=== PATIENT | female | born 1955 | race Caucasian/White ===

== ENCOUNTER → 2017-03-13 | Outpatient (CLI) | payer BC ==
[~2017-03-13] MED LIST: ASPCH81 PO
== END | disposition home or self-care (01) ==
LOC: C.PAPS 09:23
PROVIDERS: ATTEND Obstetrics & Gynecology
DX: Z01.419 Encounter for gynecological examination (general) (routine) without abnormal findings (principal)

== ENCOUNTER → 2017-07-30 | Outpatient (CLI) | payer BC ==
--- NOTE | 2017-07-31 07:57 | MAMMOGRAPHY REPORT ---
BILATERAL DIGITAL SCREENING MAMMOGRAM TOMOSYNTHESIS WITH CAD: 07/30/2017 CLINICAL HISTORY: Routine screening examination. TECHNIQUE: Breast tomosynthesis in addition to standard 2D mammography was performed. Current study was also evaluated with a Computer Aided Detection (CAD) system. COMPARISON: Comparison is made to exams dated: 07/24/2016 mammogram, 07/20/2015 mammogram, 11/18/2013 mammogram, 05/18/2013 aspiration, 05/06/2013 mammogram, and 10/29/2012 ultrasound - [facility]. BREAST COMPOSITION: There are scattered areas of fibroglandular density in both breasts. FINDINGS: There are benign calcifications in the breasts and multiple bilateral circumscribed subcen timeter masses, which is a typically benign mammographic pattern. No suspicious spiculated or irregu lar mass, architectural distortion or cluster of microcalcifications is seen. IMPRESSION: ACR BI-RADS CATEGORY 1: NEGATIVE There is no mammographic evidence of malignancy. A 1 year screening mammogram is recommended. The pa tient will receive written notification of the results. Approximately 10% of breast cancers are not detected with mammography. A negative mammographic report should not delay biopsy if a clinically suggestive mass is present. Winter Fritz M.D. ay/:07/30/2017 16:13:36 Child Care Giver: Carissa VASQUEZ)(M), [facility] letter sent: Normal 1/2 BI-RADS Code: ACR BI-RADS Category 1: Negative
== END | disposition home or self-care (01) ==
LOC: C.MAMM 08:52
PROVIDERS: ATTEND Obstetrics & Gynecology
DX: Z12.31 Encounter for screening mammogram for malignant neoplasm of breast (principal)

== ENCOUNTER → 2017-09-05 | Outpatient (CLI) | payer BC | END | disposition home or self-care (01) | LOC: C.MAMM 08:52 | PROVIDERS: ATTEND Internal Medicine | DX: Z78.0 Asymptomatic menopausal state (principal) ==

== ENCOUNTER → 2018-05-05 | Outpatient (CLI) | payer OTHER ==
[~2018-05-05] MED LIST changes: -ASPCH81 PO; +ASPI81TA28 PO; +BIOT1TAB5 PO; +CALC500T83 PO; +MISCCAP69 PO; +OMEG10007 PO; +SIMV20TA2 PO
== END | disposition home or self-care (01) ==
LOC: C.LABSPEC 13:51
PROVIDERS: ATTEND Obstetrics & Gynecology
DX: Z01.411 Encounter for gynecological examination (general) (routine) with abnormal findings (principal); N95.2 Postmenopausal atrophic vaginitis

== ENCOUNTER 2021-03-15 14:03 | Inpatient (IN) ==
[~2021-03-15 14:03] MED LIST changes: -ASPI81TA28 PO; -BIOT1TAB5 PO; -CALC500T83 PO; +ETOMIDATE 2 MG/ML 20 ML VIAL IV ONE; -MISCCAP69 PO; -OMEG10007 PO; +ROCURONIUM BROMIDE 10 MG/ML 5 ML VIAL IV ONE; -SIMV20TA2 PO; +SODIUM BICARB 8.4% INJ 50 MEQ/50 ML SYR IV ONE; +fentaNYL citrate 100 MCG/2 ML VIAL IV ONE
[2021-03-15] MEDS ORDERED: ONDANSETRON INJ 2 MG/ML 2 ML VIAL IV STA ×2 (17:01→22:51)
[2021-03-15] MEDS ORDERED: SODIUM CHLORIDE 0.9% 1000ML 1,000 ML IV STA (17:01)
[2021-03-15] MEDS: fentaNYL citrate 100 MCG/2 ML VIAL IV PRN ×3 (17:35→22:52)
--- NOTE | 2021-03-15 17:44 | Emergency Department Note ---
Impression & Plan Thrombosis/embolism, arterial, Abdominal pain, acute, right upper quadrant, Thrombocytopenia ED Provider Note NAME: MILEY WIGGINS AGE: 65 SEX: F : 1955 ARRIVES VIA: Walk-In INFORMANT: Patient, ED PROVIDER(S): Wan Monique DO CHIEF COMPLAINT: Abdominal pain HPI: The patient is a 65-year-old female who presented to the emergency department for an evaluation of abdominal pain. The patient noted right upper quadrant abdominal pain which began a few days ago. The patient states the pain is been intermittent and waxing and waning. She did eat earlier today but is unsure if it made the pain worse. She does note significant nausea as well as right-sided back pain. She denies having any hematuria. She denies having dysuria or frequency. She did notice a fever. She denies having any cough. She has no chest pain at this time. She called her family doctor but was told to go to the emergency department for further evaluation of her pain. She denies having any recent trauma. She was tested for COVID-19 but does not know the results yet. ROS: See above HPI for pertinent positives & negatives. A total of 10 systems reviewed and were otherwise negative. PAST MEDICAL HISTORY: See Below PAST SURGICAL HISTORY: See Below FAMILY HISTORY: See Below SOCIAL HISTORY: See Below HOME MEDICATIONS: See Below ALLERGIES: See Below VITALS: See Below PHYSICAL EXAMINATION: GENERAL: The patient is awake and alert. She is somewhat anxious and uncomfortable appearing. EYES: The conjunctivae are clear. The pupils are round and reactive. EARS, NOSE, MOUTH AND THROAT: The nose is without any evidence of any deformity. NECK: The neck is nontender and supple. RESPIRATORY: Normal respiratory effort is noted there is no evidence of wheezing rhonchi or rales CARDIOVASCULAR: Regular rate and rhythm noted there no murmurs rubs or gallops normal S1 normal S2. GASTROINTESTINAL: The abdomen is soft and mildly distended. There is significant right upper quadrant tenderness to palpation. MUSCULOSKELETAL/EXTREMITIES: There is no evidence of gross deformity full range of motion is noted in the hips and shoulders. SKIN: There is no obvious evidence of any rash. There are no petechiae, pallor or cyanosis noted. NEUROLOGIC: Patient is awake alert and oriented x3 strength is symmetric uribe lar reflexes are 2+ bilaterally MEDICAL DECISION MAKING: The patient is a 65-year-old female who presented to the emergency department for an evaluation of right upper quadrant abdominal pain. The patient started having right upper quadrant abdominal pain over the course the last few days. Initially I thought her condition was consistent with cholecystitis. Radiographic studies were obtained but no definite source of the patient's pain could be found on ultrasound although there was some abnormality suggested in the vasculature. For this reason CT of the abdomen and pelvis was obtained but this appeared to be consistent with abnormalities in the celiac branches. There is also a splenic infarct. I discussed the patient's laboratory and radiog raphic studies with her. I also discussed her case with the vascular surgeon at [facility]. They do feel this is more likely to be a medical work- up. I discussed her case with the vascular surgeon in our facility as well as the [facility] hospitalist group at our facility. They have agreed to evaluate the patient for further management. The topic of heparin was discussed and at this time was felt to be indicated given the patient's signs of vascular occlusion. Triage Nursing notes reviewed. Prior medical records reviewed Vital Signs: reviewed and remarkable for elevated blood pressure. Differential diagnosis: Etiologies such as appendicitis, diverticulitis, obstruction, inflammatory bowel disease, renal colic, PUD, biliary pathology, pancreatitis, mesenteric ischemia, aortic pathology, infections, genitourinary, UTI, perforated viscus, as well as others were entertained. ER treatment provided: See below Diagnostics interpreted by me: ECG: EKG was obtained in the emergency department. My interpretation is normal sinus rhythm at 65 bpm. There is no ectopy. There was no acute ST segment abnormalities noted. Incomplete right bundle branch block pattern was noted. There was no previous tracing available. Cardiac Monitoring: An order was placed for continuous cardiac monitoring. The monitor shows a rate of 76 bpm with sinus rhythm. Laboratory studies: As stated above and show below. Imaging studies: See below Consultation(s): 2049: I discussed this case with Dr. Vasquez who is on-call for vascular surgery at [facility]. He does recommend medical management at this time and sees no contraindication to heparinization. 2099: I discussed this case with Dr. Luu who is on-call at our facility for vascular. 2119: I discussed with Dr. Schultz who is on-call for the [facility] hospitalist group. ED COURSE: Procedures: none PDMP:reviewed and no issues Critical Care: I have personally spent greater than 45 minutes of critical care time in the direct management of this patient. This includes bedside care, interpretation of diagnostic studies, and testing, discussion with consultants, patient, and family members, and other required patient management activities. This 45 minutes is in excess of all separately billable procedures. Past Med/Surg History Medical History Encounter for counseling for travel Encounter for gynecological examination (general) (routine) without abnormal findings Encounter for immunization Encounter for screening for other suspected endocrine disorder Lateral epicondylitis, unspecified elbow Migraine without aura, not intractable, without status migrainosus Need for immunization using typhoid-paratyphoid (TAB) vaccine alone Need for influenza vaccination Need for pneumococcal vaccination Need for prophylactic measure Rash and other nonspecific skin eruption Surgical History S/P colonoscopy 2006, q 5yr S/P thyroid surgery R sided d/t cyst, age 14 S/P tubal ligation Family History Father Colorectal cancer Mother Coronary heart disease Brother Aortic aneurysm Denies family history of Ovarian cancer Prostate cancer Myocardial infarction Breast cancer Social History Smoking Status: Never smoker Second Hand Exposure: No; Hx Alcohol Use: Yes Alcohol type: wine Alcohol Intake Frequency Comment: 8 times a year Hx Substance Use: No Preferred Language: Azerbaijani Visual Impairment: No Limitations marital status: Current Living Situation: Spouse current occupational status: retired Feels Safe at Home: Yes Childhood Exposure to Second-Hand Smoke: No Dental Care, Regularly: Yes Physical Activity Frequency: 1-2 Times per Week Seatbelt Use: always Sunscreen Use: Yes Allergies Allergies Allergy/AdvReac Type Severity Reaction Status Date / Time meperidine AdvReac Intermediate N/V AND Verified 03/15/21 19:45 AMNESIA midazolam AdvReac Intermediate AMNESIA Verified 03/15/21 19:45 procaine AdvReac Intermediate HEART Verified 03/15/21 19:45 PALPITATIONS Home Meds Home Medications Medication Instructions Recorded Confirmed biotin 10 mg tablet 10 mg PO DAILY 12/31/19 03/15/21 ascorbate calcium (vitamin C) 500 500 mg PO DAILY PRN tab 05/10/20 03/15/21 mg tablet lutein 10 mg PO DAILY 03/15/21 03/15/21 Previous Rx's Medication Instructions Recorded cholecalciferol (vitamin D3) 125 5,000 units PO DAILY #30 cap 10/05/19 mcg (5,000 unit) capsule vitamin B complex 1 tab PO DAILY #30 tab 10/05/19 simvastatin 20 mg tablet 20 mg PO QPM #90 tab 04/14/20 aspirin 81 mg tablet,delayed 81 mg PO Q OTHER DAY #30 tab 05/10/20 release Results & Data (ED) Vital Signs Vital Signs - 24 hr 03/15/21 14:46 03/15/21 17:30 03/15/21 17:38 Temperature 36.8 C Temperature Source Skin Pulse Rate 60 66 Pulse Rate from SpO2 Sensor Respiratory Rate 18 17 Respiratory Effort / Characteristics Non-Labored Spontaneous Respiratory Depth Normal Respiratory Pattern Regular Blood Pressure 129/61 Blood Pressure Mean 83 Blood Pressure Position Sitting Pulse Oximetry 95 99 Oxygen Delivery Method Room Air Sepsis Recent Fever Within 48 Hours No Sepsis New/Unexplained Change in Mental Status N/A Sepsis Action Taken by Nursing No Action Required 03/15/21 17:40 03/15/21 17:41 03/15/21 18:00 Temperature Temperature Source Pulse Rate 65 66 66 Pulse Rate from SpO2 Sensor 65 66 65 Respiratory Rate 17 17 21 Respiratory Effort / Characteristics Respiratory Depth Respiratory Pattern Blood Pressure 164/96 H 156/95 H Blood Pressure Mean 118 115 Blood Pressure Position Pulse Oximetry 99 99 99 Oxygen Delivery Method Sepsis Recent Fever Within 48 Hours Sepsis New/Unexplained Change in Mental Status Sepsis Action Taken by Nursing 03/15/21 19:03 03/15/21 19:05 03/15/21 20:00 Temperature Temperature Source Pulse Rate 73 70 74 Pulse Rate from SpO2 Sensor Respiratory Rate 24 21 25 H Respiratory Effort / Characteristics Respiratory Depth Respiratory Pattern Blood Pressure 125/82 168/85 H Blood Pressure Mean 96 112 Blood Pressure Position Pulse Oximetry 96 96 Oxygen Delivery Method Room Air Sepsis Recent Fever Within 48 Hours Sepsis New/Unexplained Change in Mental Status Sepsis Action Taken by Nursing 03/15/21 20:30 03/15/21 21:00 03/15/21 21:31 Temperature Temperature Source Pulse Rate 68 67 76 Pulse Rate from SpO2 Sensor Respiratory Rate 18 19 16 Respiratory Effort / Characteristics Respiratory Depth Respiratory Pattern Blood Pressure 163/97 H 150/83 H 152/90 H Blood Pressure Mean 119 105 110 Blood Pressure Position Pulse Oximetry 97 96 98 Oxygen Delivery Method Sepsis Recent Fever Within 48 Hours Sepsis New/Unexplained Change in Mental Status Sepsis Action Taken by Retirement Medications Current Medication List: was personally reviewed by me Laboratory Data Attestation: I reviewed the patient's lab results. Result diagrams: 03/15/21 17:25 03/15/21 17:25 Lab Results 03/15/21 03/15/21 03/15/21 Range/Units 17:25 17:25 20:26 WBC 2.69 L (4.8-10.8) K/uL RBC 5.12 (4.2-5.4) M/uL Hgb 16.3 H (12.0-16.0) g/dL Hct 46.0 (37-47) % MCV 89.8 (80-100) fL MCH 31.8 (25-34) pg MCHC 35.4 (32-36) g/dL RDW Std Deviation 45.2 (36.4-46.3) fL RDW Coeff of Jasmin 13.5 (11.5-14.5) % Plt Count 61 L (130-400) K/uL MPV 11.6 H (7.4-10.4) fL Immature Gran % (Auto) 0.4 % Neut % (Auto) 83.3 % Lymph % (Auto) 14.5 % Montgomery % (Auto) 1.1 % Eos % (Auto) 0.0 % Baso % (Auto) 0.7 % Neut # (Auto) 2.24 (1.4-6.5) K/uL Lymph # (Auto) 0.39 L (1.2-3.4) K/uL Montgomery # (Auto) 0.03 L (0.11-0.59) K/uL Eos # (Auto) 0.00 (0-0.5) K/uL Baso # (Auto) 0.02 (0-0.2) K/uL Immature Gran # (Auto) 0.01 (0.00-0.02) K/uL Platelet Estimate Decreased L (Normal) ESR (0-30) mm/hr PT 10.4 (9.0-12.0) Seconds INR 1.0 (0.9-1.1) Sodium 138 (136-145) mmol/L Potassium 3.5 (3.5-5.1) mmol/L Chloride 106 (98-107) mmol/L Carbon Dioxide 22 (21-32) mmol/L Anion Gap 10.0 (3-11) BUN 20 H (7-18) mg/dl Creatinine 1.17 (0.6-1.2) mg/dl Est Cr Clr Drug Dosing 33.5 ml/min Est GFR ( Amer) 55.8 ml/min Est GFR (Non-Af Amer) 48.2 ml/min BUN/Creatinine Ratio 17.2 (10-20) Glucose 154 H (70-99) mg/dl Lactate (0.4-2.0) mmol/L Calcium 8.8 (8.5-10.1) mg/dl Total Bilirubin 1.5 H (0.2-1) mg/dl AST 123 H (15-37) U/L ALT 99 H (12-78) U/L Alkaline Phosphatase 280 H (45-117) U/L Troponin I < 0.015 (0-0.045) ng/ml C-Reactive Protein (0-0.29) mg/dl Total Protein 7.2 (6.4-8.2) gm/dl Albumin 3.6 (3.4-5.0) gm/dl Globulin 3.6 (2.5-4.0) gm/dl Albumin/Globulin Ratio 1.0 (0.9-2) Lipase 113 (73-393) U/L Urine Color Urine Appearance (Clear) Urine pH (4.5-7.5) Ur Specific [place] (1.000-1.030) Urine Protein (Negative) Urine Glucose (UA) (Negative) Urine Ketones (Negative) Urine Blood (Negative) Urine Nitrite (Negative) Urine Bilirubin (Negative) Urine Urobilinogen (Negative) Ur Leukocyte Esterase (Negative) Urine RBC (0-4) /hpf Urine WBC (0-5) /hpf Ur Epithelial Cells (0-5) /lpf Urine Bacteria (Negative) Hyaline Casts (0-5) /lpf Urine Mucus (None Prsent) COVID-19 Eval Order SARS-CoV-2 (PCR) (Negative) 06/09/21 06/09/21 06/09/21 Range/Units 20:26 20:26 20:29 WBC (4.8-10.8) K/uL RBC (4.2-5.4) M/uL Hgb (12.0-16.0) g/dL Hct (37-47) % MCV (80-100) fL MCH (25-34) pg MCHC (32-36) g/dL RDW Std Deviation (36.4-46.3) fL RDW Coeff of Jasmin (11.5-14.5) % Plt Count (130-400) K/uL MPV (7.4-10.4) fL Immature Gran % (Auto) % Neut % (Auto) % Lymph % (Auto) % Montgomery % (Auto) % Eos % (Auto) % Baso % (Auto) % Neut # (Auto) (1.4-6.5) K/uL Lymph # (Auto) (1.2-3.4) K/uL Montgomery # (Auto) (0.11-0.59) K/uL Eos # (Auto) (0-0.5) K/uL Baso # (Auto) (0-0.2) K/uL Immature Gran # (Auto) (0.00-0.02) K/uL Platelet Estimate (Normal) ESR (0-30) mm/hr PT (9.0-12.0) Seconds INR (0.9-1.1) Sodium (136-145) mmol/L Potassium (3.5-5.1) mmol/L Chloride (98-107) mmol/L Carbon Dioxide (21-32) mmol/L Anion Gap (3-11) BUN (7-18) mg/dl Creatinine (0.6-1.2) mg/dl Est Cr Clr Drug Dosing ml/min Est GFR ( Amer) ml/min Est GFR (Non-Af Amer) ml/min BUN/Creatinine Ratio (10-20) Glucose (70-99) mg/dl Lactate (0.4-2.0) mmol/L Calcium (8.5-10.1) mg/dl Total Bilirubin (0.2-1) mg/dl AST (15-37) U/L ALT (12-78) U/L Alkaline Phosphatase (45-117) U/L Troponin I (0-0.045) ng/ml C-Reactive Protein (0-0.29) mg/dl Total Protein (6.4-8.2) gm/dl Albumin (3.4-5.0) gm/dl Globulin (2.5-4.0) gm/dl Albumin/Globulin Ratio (0.9-2) Lipase (73-393) U/L Urine Color Yellow Urine Appearance Clear (Clear) Urine pH 6.0 (4.5-7.5) Ur Specific [place] 1.015 (1.000-1.030) Urine Protein 1+ H (Negative) Urine Glucose (UA) Negative (Negative) Urine Ketones 1+ H (Negative) Urine Blood Trace-intact H (Negative) Urine Nitrite Negative (Negative) Urine Bilirubin Negative (Negative) Urine Urobilinogen Negative (Negative) Ur Leukocyte Esterase Negative (Negative) Urine RBC 0-4 (0-4) /hpf Urine WBC 5-10 H (0-5) /hpf Ur Epithelial Cells 5-10 H (0-5) /lpf Urine Bacteria Negative (Negative) Hyaline Casts 5-10 H (0-5) /lpf Urine Mucus Present A (None Prsent) COVID-19 Eval Order Covid19 at [facility] SARS-CoV-2 (PCR) NEGATIVE (Negative) 03/15/21 03/15/21 03/15/21 Range/Units 20:31 20:31 20:31 WBC (4.8-10.8) K/uL RBC (4.2-5.4) M/uL Hgb (12.0-16.0) g/dL Hct (37-47) % MCV (80-100) fL MCH (25-34) pg MCHC (32-36) g/dL RDW Std Deviation (36.4-46.3) fL RDW Coeff of Jasmin (11.5-14.5) % Plt Count (130-400) K/uL MPV (7.4-10.4) fL Immature Gran % (Auto) % Neut % (Auto) % Lymph % (Auto) % Montgomery % (Auto) % Eos % (Auto) % Baso % (Auto) % Neut # (Auto) (1.4-6.5) K/uL Lymph # (Auto) (1.2-3.4) K/uL Montgomery # (Auto) (0.11-0.59) K/uL Eos # (Auto) (0-0.5) K/uL Baso # (Auto) (0-0.2) K/uL Immature Gran # (Auto) (0.00-0.02) K/uL Platelet Estimate (Normal) ESR 13 (0-30) mm/hr PT (9.0-12.0) Seconds INR (0.9-1.1) Sodium (136-145) mmol/L Potassium (3.5-5.1) mmol/L Chloride (98-107) mmol/L Carbon Dioxide (21-32) mmol/L Anion Gap (3-11) BUN (7-18) mg/dl Creatinine (0.6-1.2) mg/dl Est Cr Clr Drug Dosing ml/min Est GFR ( Amer) ml/min Est GFR (Non-Af Amer) ml/min BUN/Creatinine Ratio (10-20) Glucose (70-99) mg/dl Lactate 2.8 H* (0.4-2.0) mmol/L Calcium (8.5-10.1) mg/dl Total Bilirubin (0.2-1) mg/dl AST (15-37) U/L ALT (12-78) U/L Alkaline Phosphatase (45-117) U/L Troponin I (0-0.045) ng/ml C-Reactive Protein 6.50 H (0-0.29) mg/dl Total Protein (6.4-8.2) gm/dl Albumin (3.4-5.0) gm/dl Globulin (2.5-4.0) gm/dl Albumin/Globulin Ratio (0.9-2) Lipase (73-393) U/L Urine Color Urine Appearance (Clear) Urine pH (4.5-7.5) Ur Specific [place] (1.000-1.030) Urine Protein (Negative) Urine Glucose (UA) (Negative) Urine Ketones (Negative) Urine Blood (Negative) Urine Nitrite (Negative) Urine Bilirubin (Negative) Urine Urobilinogen (Negative) Ur Leukocyte Esterase (Negative) Urine RBC (0-4) /hpf Urine WBC (0-5) /hpf Ur Epithelial Cells (0-5) /lpf Urine Bacteria (Negative) Hyaline Casts (0-5) /lpf Urine Mucus (None Prsent) COVID-19 Eval Order SARS-CoV-2 (PCR) (Negative) Administered Medications Fentanyl Citrate (Fentanyl Citrate 100 Mcg/2 Ml Vial) 50 mcg IV Q15M PRN PRN Reason: Pain Stop: 03/29/21 17:00 Last Admin: 03/15/21 20:18 Dose: 50 mcg Documented by: [id number] Admin: 03/15/21 17:35 Dose: 50 mcg Documented by: [id number] Heparin Sodium/Dextrose (Heparin Sodium/Dextrose) 25,000 units in 500 mls @ 17 mls/hr IV .Q24H SAMUEL; Protocol Stop: 04/14/21 20:29 Last Admin: 03/15/21 20:53 Dose: 850 units/hr, 17 mls/hr Documented by: [id number] Cosigned by: [id number] Discontinued Medications Heparin Sodium (Porcine) (Heparin Sod (Porcine) 1000 Unit/Ml) 1 units IV NOW ONE Stop: 03/15/21 20:31 Last Admin: 03/15/21 20:51 Dose: 4,000 units Documented by: [id number] Cosigned by: [id number] Heparin Sodium/Dextrose (Heparin Iv Adult Wt-Based Standard With Bolus Protocol) 1 ea IV NOW STA; Protocol Stop: 03/15/21 20:16 Last Admin: 03/15/21 20:53 Dose: Not Given Documented by: [id number] Sodium Chloride (Nss 1000ml) 1,000 mls @ 999 mls/hr IV .Q1H1M STA Stop: 03/15/21 18:01 Last Infusion: 03/15/21 18:33 Dose: 0 mls/hr Documented by: [id number] Admin: 03/15/21 17:32 Dose: 999 mls/hr Documented by: [id number] Ioversol (Optiray 320 100ml) 97 ml IV ONCE ONE Stop: 03/15/21 19:57 Last Admin: 03/15/21 19:56 Dose: 97 ml Documented by: [id number] Ondansetron HCl (Ondansetron Inj 2 Mg/Ml 2 Ml Vial) 4 mg IV NOW STA Stop: 03/15/21 17:02 Last Admin: 03/15/21 17:32 Dose: 4 mg Documented by: [id number] Imaging Data Radiologist's Impression: Gallbladder Ultrasound 03/15/21 17:01 US gallbladder HISTORY: 65 years-old Female RU pain acute right upper quadrant abdominal pain COMPARISON: KUB of same day TECHNIQUE: Multiple real-time sonographic images of the abdominal right upper quadrant were obtained assessing grayscale appearance and color flow FINDINGS: The visualized pancreas is unremarkable. The liver is within normal limits. Unremarkable gallbladder without shadowing cholelithiasis, wall thickening or pericholecystic fluid. Sonographic Lama sign reported as negative. Normal common bile duct, 5 mm. Atherosclerotic plaque of the hepatic artery. Elevated peak systolic velocities within the main hepatic artery measure up to 407 cm/s with high resistance waveforms. IMPRESSION: 1. No cholelithiasis or sonographic evidence of acute cholecystitis. 2. No biliary ductal dilation. 3. Atherosclerotic plaque of the hepatic artery results in associated hemodynamically significant stenosis. ACT 112: Negative or not required by law. The above report was generated using voice recognition software. It may contain grammatical, syntax or spelling errors. Electronically signed by: Kel Reza M.D. 03/15/2021 7:09 PM KUB X-Ray 03/15/21 17:01 XR chest 1V portable, XR KUB/Abdomen 1 view HISTORY: 65 years-old Female RUQ pain acute atypical chest pain with right upper quadrant abdominal pain COMPARISON: Acute abdominal series radiographs 05/14/2011 TECHNIQUE: AP view of the chest with KUB radiograph FINDINGS: CHEST: The cardiomediastinal and hilar silhouettes are within normal limits. No pneum othorax, pleural effusion, airspace consolidation or overt pulmonary edema. Bones of the chest appear grossly intact. KUB: Moderate gaseous distention of the stomach. Nonobstructive bowel gas pattern. Delmis lobe of the liver. No pneumatosis or pneumoperitoneum identified. Pelvic basin calcifications are suggestive of phleboliths. No acute fracture. IMPRESSION: 1. No acute processes of the chest. 2. Nonobstructive bowel gas pattern. 3. Gaseous distention of the stomach. ACT 112: Negative or not required by law. The above report was generated using voice recognition software. It may contain grammatical, syntax or spelling errors. Electronically signed by: Kel Reza M.D. 03/15/2021 5:51 PM Chest X-Ray 03/15/21 17:02 XR chest 1V portable, XR KUB/Abdomen 1 view HISTORY: 65 years-old Female RUQ pain acute atypical chest pain with right upper quadrant abdominal pain COMPARISON: Acute abdominal series radiographs 05/14/2011 TECHNIQUE: AP view of the chest with KUB radiograph FINDINGS: CHEST: The cardiomediastinal and hilar silhouettes are within normal limits. No pneu mothorax, pleural effusion, airspace consolidation or overt pulmonary edema. Bones of the chest appear grossly intact. KUB: Moderate gaseous distention of the stomach. Nonobstructive bowel gas pattern. Delmis lobe of the liver. No pneumatosis or pneumoperitoneum identified. Pelvic basin calcifications are suggestive of phleboliths. No acute fracture. IMPRESSION: 1. No acute processes of the chest. 2. Nonobstructive bowel gas pattern. 3. Gaseous distention of the stomach. ACT 112: Negative or not required by law. The above report was generated using voice recognition software. It may contain grammatical, syntax or spelling errors. Electronically signed by: Kel Reza M.D. 03/15/2021 5:51 PM Abdomen/Pelvis CT 03/15/21 19:[address] WITH IV CONTRAST CT DOSE: 326.03 mGycm HISTORY: Acute right upper quadrant abdominal pain RUQ pain TECHNIQUE: Multiaxial CT images of the abdomen and pelvis were performed following the IV administration of 97 cc of Optiray, A dose lowering technique was utilized adhering to the principles of ALARA. COMPARISON STUDY: Right upper quadrant abdominal ultrasound of same day FINDINGS: Trace pericardial effusion. The imaged inferior cardiac chambers are unremarkable. Trace pleural effusions. Mild dependent subsegmental bibasilar atelectasis. No pneumatosis or pneumoperitoneum. There is a linear area of hypoattenuation involving the mid to inferior spleen measuring 3.4 x 0.7 cm. The pancreas, adrenal glands and gallbladder are unremarkable. 9 mm cyst of the inferior right hepatic lobe. Delmis lobe of the liver. A few scattered subcentimeter hypodensities of the right hepatic lobe are too small to characterize however are likely benign. There is patency of the hepatic and portal veins. Moderate amount of periportal edema is noted. There is multifocal luminal narrowing with wall thickening involving the celiac trunk and its branches, notably within the hepatic artery nicely seen on image 120 of series 3. There is high-grade stenosis with poststenotic dilation. Distal branches of the hepatic artery appear to be stenosed and/or occluded as seen on image 123. The superior mesenteric artery is patent. Patent renal arteries. Splenic artery and vein appear patent. A few cysts of the kidneys are noted bilaterally measuring 7 mm on the right and 9 mm on the left. No hydronephrosis. Unremarkable urinary bladder. Uterus and adnexa are within normal limits. Aorta and IVC are unremarkable. Colonic diverticulosis. No bowel obstruction or bowel wall thickening. The appendix is not definitively seen. No secondary signs of acute appendicitis. Cecum is noted at the midline. Trace free fluid along the inferior right hepatic lobe and right pericolic gutter. Unremarkable soft tissues. Mild lumbar levoscoliosis. There is no acute fracture. IMPRESSION: 1. Multifocal wall thickening with luminal irregularity and narrowing involves branches of the celiac trunk, notably with high-grade stenosis and poststenotic dilation involving the hepatic artery. Distal branches of the hepatic artery demonstrate areas of high-grade stenosis and probable occlusion. Findings are s uggestive of a vasculitis such as polyarteritis nodosa. Vascular interventional consultation recommended. 2. Linear hypodensity of the mid spleen is suggestive of an acute splenic infarct. No splenic artery or splenic vein occlusion identified. 3. Moderate periportal edema with trace perihepatic free fluid, likely reactive. 4. No bowel obstruction or bowel wall thickening. 5. Trace pleural effusions. Findings were discussed with Dr. Monique on 03/15/2021 at 8:16 PM. ACT 112: Negative or not required by law. The above report was generated using voice recognition software. It may contain grammatical, syntax or spelling errors. Electronically signed by: Kel Reza M.D. 03/15/2021 8:28 PM Discharge Plan Visit Data Chief Complaint: Abdominal Pain Stated Complaint: PAIN ON R SIDE UNDER BREAST,VOMITING ED Provider: Wan Monique Discharge Problem: Thrombosis/embolism, arterial, Abdominal pain, acute, right upper quadrant, Thrombocytopenia Patient Disposition: Being Evaluated by Hospitalist Condition: Good Forms Stand Alone Forms: [facility] Prescriptions Prescriptions: No Action vitamin B complex tablet 1 tab PO DAILY Qty: 30 RF: 0 cholecalciferol (vitamin D3) 5,000 unit capsule 5,000 units PO DAILY Qty: 30 RF: 0 biotin 10 mg tablet 10 mg PO DAILY RF: 0 simvastatin 20 mg tablet 20 mg PO QPM Qty: 90 RF: 3 ascorbate calcium (vitamin C) 500 mg tablet 500 mg PO DAILY PRN (Reason: takes when feeling ill) RF: 0 aspirin 81 mg tablet,delayed release (DR/EC) 81 mg PO Q OTHER DAY Qty: 30 RF: 2 lutein 10 mg Tablet 10 mg PO DAILY RF: 0 Referrals Referrals: Victorino Del Valle MD [Primary Care Provider] -
--- NOTE | 2021-03-15 17:52 | XRay Report ---
XR chest 1V portable, XR KUB/Abdomen 1 view HISTORY: 65 years-old Female RUQ pain acute atypical chest pain with right upper quadrant abdominal pain COMPARISON: Acute abdominal series radiographs 05/14/2011 TECHNIQUE: AP view of the chest with KUB radiograph FINDINGS: CHEST: The cardiomediastinal and hilar silhouettes are within normal limits. No pneumothorax, pleural effusi on, airspace consolidation or overt pulmonary edema. Bones of the chest appear grossly intact. KUB: Moderate gaseous distention of the stomach. Nonobstructive bowel gas pattern. Delmis lobe of the live r. No pneumatosis or pneumoperitoneum identified. Pelvic basin calcifications are suggestive of phleb oliths. No acute fracture. IMPRESSION: 1. No acute processes of the chest. 2. Nonobstructive bowel gas pattern. 3. Gaseous distention of the stomach. ACT 112: Negative or not required by law. The above report was generated using voice recognition software. It may contain grammatical, syntax o r spelling errors. Electronically signed by: Kel Reza M.D. 03/15/2021 5:51 PM
[2021-03-15 17:56] LABS: Alanine Aminotransferase 99 U/L (12-78); Albumin Level 3.6 gm/dl (3.4-5.0); Aspartate Aminotransferase 123 U/L (15-37); BUN Creatinine Ratio 17.2 (10-20); Blood Urea Nitrogen 20 mg/dl (7-18); Calcium 8.8 mg/dl (8.5-10.1); Carbon Dioxide 22 mmol/L (21-32); Chloride 106 mmol/L (98-107); Creatinine Clr Calc Pharmacy 33.5 ml/min; Est GFR (African American) 55.8 ml/min; Est GFR (Non-African American) 48.2 ml/min; Glucose 154 mg/dl (70-99); Lipase 113 U/L (73-393); Potassium 3.5 mmol/L (3.5-5.1); Sodium 138 mmol/L (136-145)
[2021-03-15 18:01] LABS: Alkaline Phosphatase 280 U/L (45-117); Bilirubin,Total 1.5 mg/dl (0.2-1); Globulin 3.6 gm/dl (2.5-4.0); Total Protein 7.2 gm/dl (6.4-8.2); Troponin I < 0.015 ng/ml (0-0.045)
[2021-03-15 18:18] LABS: Hemoglobin 16.3 g/dL (12.0-16.0); Mean Corpuscular Hemoglobin 31.8 pg (25-34); Mean Corpuscular Hgb Conc 35.4 g/dL (32-36); Mean Corpuscular Volume 89.8 fL (80-100); Mean Platelet Volume 11.6 fL (7.4-10.4); Platelet Count 61 K/uL (130-400); RDW Coefficient of Variation 13.5 % (11.5-14.5); RDW Standard Deviation 45.2 fL (36.4-46.3); Red Blood Count 5.12 M/uL (4.2-5.4); White Blood Count 2.69 K/uL (4.8-10.8)
[2021-03-15 18:19] LABS: Basophils # (auto) 0.02 K/uL (0-0.2); Basophils % (auto) 0.7 %; Immature Granulocytes # (auto) 0.01 K/uL (0.00-0.02); Immature Granulocytes % (auto) 0.4 %; Lymphocytes # (auto) 0.39 K/uL (1.2-3.4); Lymphocytes % (auto) 14.5 %; Monocytes # (auto) 0.03 K/uL (0.11-0.59); Monocytes % (auto) 1.1 %; Neutrophils # (auto) 2.24 K/uL (1.4-6.5); Neutrophils % (auto) 83.3 %; Platelet Estimate Decreased (Normal)
--- NOTE | 2021-03-15 19:10 | Ultrasound Report ---
US gallbladder HISTORY: 65 years-old Female RU pain acute right upper quadrant abdominal pain COMPARISON: KUB of same day TECHNIQUE: Multiple real-time sonographic images of the abdominal right upper quadrant were obtained assessing grayscale appearance and color flow FINDINGS: The visualized pancreas is unremarkable. The liver is within normal limits. Unremarkable gallbladder without shadowing cholelithiasis, wall thickening or pericholecystic fluid. Sonographic Lama sign r eported as negative. Normal common bile duct, 5 mm. Atherosclerotic plaque of the hepatic artery. Yvonne vated peak systolic velocities within the main hepatic artery measure up to 407 cm/s with high resist ance waveforms. IMPRESSION: 1. No cholelithiasis or sonographic evidence of acute cholecystitis. 2. No biliary ductal dilation. 3. Atherosclerotic plaque of the hepatic artery results in associated hemodynamically significant josé luis nosis. ACT 112: Negative or not required by law. The above report was generated using voice recognition software. It may contain grammatical, syntax o r spelling errors. Electronically signed by: Kel Reza M.D. 03/15/2021 7:09 PM
[2021-03-15] MEDS ORDERED: OPTIRAY 320 100ml IV ONE (19:56)
[2021-03-15] MEDS ORDERED: Heparin IV Adult Wt-Based Standard WITH Bolus Protocol IV STA (20:15)
--- NOTE | 2021-03-15 20:29 | CT Scan Report ---
ABDOMEN AND PELVIS CT WITH IV CONTRAST CT DOSE: 326.03 mGycm HISTORY: Acute right upper quadrant abdominal pain RUQ pain TECHNIQUE: Multiaxial CT images of the abdomen and pelvis were performed following the IV administrat ion of 97 cc of Optiray, A dose lowering technique was utilized adhering to the principles of ALARA. COMPARISON STUDY: Right upper quadrant abdominal ultrasound of same day FINDINGS: Trace pericardial effusion. The imaged inferior cardiac chambers are unremarkable. Trace pl eural effusions. Mild dependent subsegmental bibasilar atelectasis. No pneumatosis or pneumoperitoneu m. There is a linear area of hypoattenuation involving the mid to inferior spleen measuring 3.4 x 0.7 cm . The pancreas, adrenal glands and gallbladder are unremarkable. 9 mm cyst of the inferior right hepa tic lobe. Delmis lobe of the liver. A few scattered subcentimeter hypodensities of the right hepatic lobe are too small to characterize however are likely benign. There is patency of the hepatic and por elissa veins. Moderate amount of periportal edema is noted. There is multifocal luminal narrowing with w all thickening involving the celiac trunk and its branches, notably within the hepatic artery nicely seen on image 120 of series 3. There is high-grade stenosis with poststenotic dilation. Distal branch es of the hepatic artery appear to be stenosed and/or occluded as seen on image 123. The superior mes enteric artery is patent. Patent renal arteries. Splenic artery and vein appear patent. A few cysts of the kidneys are noted bilaterally measuring 7 mm on the right and 9 mm on the left. No hydronephrosis. Unremarkable urinary bladder. Uterus and adnexa are within normal limits. Aorta and IVC are unremarkable. Colonic diverticulosis. No bowel obstruction or bowel wall thickening. The appe ndix is not definitively seen. No secondary signs of acute appendicitis. Cecum is noted at the midlin e. Trace free fluid along the inferior right hepatic lobe and right pericolic gutter. Unremarkable so ft tissues. Mild lumbar levoscoliosis. There is no acute fracture. IMPRESSION: 1. Multifocal wall thickening with luminal irregularity and narrowing involves branches of the celiac trunk, notably with high-grade stenosis and poststenotic dilation involving the hepatic artery. Dist al branches of the hepatic artery demonstrate areas of high-grade stenosis and probable occlusion. Fi ndings are suggestive of a vasculitis such as polyarteritis nodosa. Vascular interventional consultat ion recommended. 2. Linear hypodensity of the mid spleen is suggestive of an acute splenic infarct. No splenic artery or splenic vein occlusion identified. 3. Moderate periportal edema with trace perihepatic free fluid, likely reactive. 4. No bowel obstruction or bowel wall thickening. 5. Trace pleural effusions. Findings were discussed with Dr. Monique on 03/15/2021 at 8:16 PM. ACT 112: Negative or not required by law. The above report was generated using voice recognition software. It may contain grammatical, syntax o r spelling errors. Electronically signed by: Kel Reza M.D. 03/15/2021 8:28 PM
[2021-03-15] MEDS ORDERED: HEPARIN SODIUM/DEXTROSE 25,000 UNITS/500 ML BAG IV SCH (20:30)
[2021-03-15] MEDS ORDERED: HEPARIN SOD (PORCINE) 1000 UNIT/ML IV ONE (20:30)
[2021-03-15 20:40] LABS: Appearance Urine Clear (Clear); Bilirubin Urine Negative (Negative); Blood Urine Trace-intact (Negative); Color Urine Yellow; Glucose Urine UA Negative (Negative); Ketones Urine 1+ (Negative); Leukocyte Esterase Urine Negative (Negative); Nitrite Urine Negative (Negative); Protein Urine 1+ (Negative); Specific Gravity Urine 1.015 (1.000-1.030); Urobilinogen Urine Negative (Negative)
[2021-03-15 20:48] LABS: Prothrombin Time 10.4 Seconds (9.0-12.0)
[2021-03-15 21:05] LABS: RBC Urine 0-4 /hpf (0-4)
[2021-03-15 21:06] LABS: Bacteria Urine Negative (Negative); Mucus Urine Present (None Prsent)
--- NOTE | 2021-03-15 21:40 | History & Physical Report ---
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 MAN, temporal arteritis) vs. tick-borne. Stable. Current abdominal exam w/o peritoneal signs. 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 Defer tx. - labs ordered: tick panel, acute hep panel, peripheral smear, CK, LDH, ELIS, ANCA, C3, C4. Defer spep/upep. - ordered serial abd exams - started PO prednisone 50 mg daily empirically for vasculitis. Defer other immunosuppressing agents until rheum consulted - continue IV heparin because of possible early mesenteric ischemia (lactate 2.6 noted). Treatment team had discussion w/ local as well as [facility] vascular team; no surgical intervention indicated at this time. - IV morphine 2 mg q2h PRN for pain control. - consulted vascular surgery - will consult [facility] rheum in AM (2) Vasculitis: - ESR wnl. CRP elevated - imaging findings and steroid tx as above (3) Thrombocytopenia: - prior to administration of heparin - etiology unknown, tick-borne infection considered - heparin use not contraindicated, but will monitor use of (4) Headache: - location of GOETZ suspicious for temporal arteritis - steroid tx as above (5) Hypercholesterolemia: - temporarily held home PO statin for bowel rest (6) Thrombophlebitis of leg, left: - chronic, stable. 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 no IVF code: full anticoag: therapeutic IV heparin dispo: med/surg w/ tele History of Present Illness Chief Complaint: RUQ abdominal pain Primary Care Provider: Brandon Del Valle MD Karen La is a 65 y/o F w/ hx of HLD in good general health who presents w/ worsening RUQ abd pain that started 3 days ago. Since that time, she had fever (102.4F tmax, resolved today), chills, nausea, stabbing headache at temples, left mid-low back pain, and suprapubic pain. Patient presented to ED today because her RUQ pain (radiating to LUQ) was 10/10 and lasted for hours without improving. The RUQ pain was slightly better with back extended. Patient is unsure if symptoms are worse eating as she has eaten minimally. Currently, status post IV fentanyl x2 in the ED, patient's pains are mild, 1/10 severity at RUQ, 2/10 at suprapubic region. No headache. Denies hx arthritis, hepatitis, wt loss, fatigue, malar/discoid rash, kidney disease, seizure disorder. Family hx neg for autoimmune/rheumatoid. She has had petechiae on lower legs in prior weeks. Last BM this AM. Patient had both doses covid vaccine in December 2020. Patient has been hiking in the [place] regularly. She found a tick in her car 2 months ago, but none on her. ED course: started on Heparin drip because of concern for mesenteric ischemia. CT abd showing multi areas of vessel stenosis and splenic infarct. Lactate elevated to 2.6. Thrombocytopenic and leukopenic. IV fentanyl for pain. Allergies Allergy/AdvReac Type Severity Reaction Status Date / Time meperidine AdvReac Intermediate N/V AND Verified 03/15/21 19:45 AMNESIA midazolam AdvReac Intermediate AMNESIA Verified 03/15/21 19:45 procaine AdvReac Intermediate HEART Verified 03/15/21 19:45 PALPITATIONS Home Medications Medication Instructions Recorded Confirmed Type cholecalciferol (vitamin D3) 125 5,000 units PO DAILY #30 cap 10/05/19 03/15/21 Rx mcg (5,000 unit) capsule vitamin B complex 1 tab PO DAILY #30 tab 10/05/19 03/15/21 Rx biotin 10 mg tablet 10 mg PO DAILY 12/31/19 03/15/21 History simvastatin 20 mg tablet 20 mg PO QPM #90 tab 04/14/20 03/15/21 Rx ascorbate calcium (vitamin C) 500 500 mg PO DAILY PRN tab 05/10/20 03/15/21 History mg tablet aspirin 81 mg tablet,delayed 81 mg PO Q OTHER DAY #30 tab 05/10/20 03/15/21 Rx release lutein 10 mg PO DAILY 03/15/21 03/15/21 History Past Med/Surg History Medical History Encounter for counseling for travel Encounter for gynecological examination (general) (routine) without abnormal findings Encounter for immunization Encounter for screening for other suspected endocrine disorder Lateral epicondylitis, unspecified elbow Migraine without aura, not intractable, without status migrainosus Need for immunization using typhoid-paratyphoid (TAB) vaccine alone Need for influenza vaccination Need for pneumococcal vaccination Need for prophylactic measure Rash and other nonspecific skin eruption Surgical History S/P colonoscopy 2006, q 5yr S/P thyroid surgery R sided d/t cyst, age 14 S/P tubal ligation Family History Father Colorectal cancer Mother Coronary heart disease Brother Aortic aneurysm Denies family history of Ovarian cancer Prostate cancer Myocardial infarction Breast cancer Social History Smoking Status: Never smoker Second Hand Exposure: No; Hx Alcohol Use: Yes Alcohol type: wine Alcohol Intake Frequency Comment: 8 times a year Hx Substance Use: No Preferred Language: Spanish Communication Ability: Effective Visual Impairment: No Limitations Section Beamer Required: No Beliefs That Will Affect Care: None marital status: Current Living Situation: Spouse current occupational status: retired Other Information That Helps Us Care for You: No Feels Safe at Home: Yes Safety Concerns: Feels Safe At This Time Childhood Exposure to Second-Hand Smoke: No Dental Care, Regularly: Yes Physical Activity Frequency: 1-2 Times per Week Seatbelt Use: always Sunscreen Use: Yes Assistive Devices: Glasses Review of Systems Review of Systems: Constitutional: Denies fever, chills. Had sweats earlier today. Eyes: Slight blurry vision, attributed to headache. +photophobia earlier, since resolved ENT: Denies sore throat, sinus pain Cardiovascular: Denies chest pain, chest pressure, palpitations, extremity swelling Respiratory: Denies shortness of breath, cough, sputum production, difficulty breathing Gastrointestinal: Denies vomiting, constipation, diarrhea. V x 1 today, no current N/V. Genitourinary: Denies dysuria. + slightly darker urine, unsure if noticed any hematuria. Musculoskeletal: Denies weakness, muscle aches/pain, joint aches/pain Neurological: Denies numbness, tingling, focal weakness Integumentary: Denies rash. Physical Exam Physical Exam: Vitals reviewed, stable. Hypertensive at admission, improved after pain controlled. General: Grossly A&O. NAD. Cooperative. HEENT: Atraumatic, normocephalic. EOMI. PERRL. No mucosal lesions. Neck is supple. Pulm: Faint inspiratory fine crackles at posterior lung singh. Symmetrical chest rise. No respiratory distress. Cardiac: RRR, -mrg. Radial pulses intact and symmetrical. Radial and DP pulses 2+ bilaterally. No LE edema. Abdominal: Mild-mod abd TTP, worst at epigastrium. Other tender locations are LUQ, RLQ, and suprapubic. No guarding or rebound. Back: No CVA TTP. Integumentary: No rash on face or extremities. Old healed scar at anterior lower neck. Several small ochoa hemangiomas. Results & Data Results & Data ([facility]) Vital Signs (Past 12 Hours) Vital Signs Temp Pulse Resp BP Pulse Ox 03/15/21 20:30 68 18 163/97 H 97 03/15/21 20:00 74 25 H 168/85 H 96 03/15/21 19:05 70 21 125/82 96 03/15/21 19:03 73 24 03/15/21 18:00 66 21 156/95 H 99 03/15/21 17:41 66 17 99 03/15/21 17:40 65 17 164/96 H 99 03/15/21 17:38 99 03/15/21 17:30 66 17 03/15/21 14:46 36.8 C 60 18 129/[address] abd/pelv: 1. Multifocal wall thickening with luminal irregularity and narrowing involves branches of the celiac trunk, notably with high-grade stenosis and poststenotic dilation involving the hepatic artery. Distal branches of the hepatic artery demonstrate areas of high-grade stenosis and probable occlusion. 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 Vascular interventional consultation recommended. 2. Linear hypodensity of the mid spleen is suggestive of an acute splenic infarct. No splenic artery or splenic vein occlusion identified. 3. Moderate periportal edema with trace perihepatic free fluid, likely reactive. 4. No bowel obstruction or bowel wall thickening. 5. Trace pleural effusions. CXR: wnl KUB: gaseous distention of stomach gallbladder US: no biliary ductal dilation, no cholelithiasis, or acute cholecystitis. Atherosclerotic plaque of the hepatic artery hemodynamically significant stenosis of hepatic artery. ECG Additional Comments: NSR 65 bpm. Normal RI interval. Normal axis. Incomplete RBBB. No acute ischemic changes. ECG per my interpretation. Code Status & VTE Plan Code Status full VTE Prophylaxis Plan VTE Prophylaxis will be ordered: Yes Supervising Physician Co-Signing Physician Notes Patient seen and examined, chart reviewed, case discussed with Dr. Nelson and I agree with his assessment and plan as documented above. Briefly, patient is a pleasant 65yo female in good health presenting with abdominal pain. CT as above with concern for possible vasculitis. Patient with fevers/chills/myalgias/malaise and GOETZ bitemboral. ROS otherwise negative, does not endorse other systemic signs/symptoms of autoimmune condition Patient afebrile, HD stable, NAD Skin - no rash, lesions. 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 Autoimmune vs infectious/inflammatory cause -Rheum workup as above -Heparin gtt for possible ischemia -High dose prednisone - 50mg po daily -Vascular consultation appreciated -Remainder of plan as above Resident Activity Tracking Resident Involvement: Resident Care Provided Care Provided: Adult Hospital Medicine
[2021-03-15] MEDS ORDERED: ONDANSETRON INJ 2 MG/ML 2 ML VIAL ONE (22:55)
[2021-03-15] MEDS ORDERED: predniSONE 50 MG TAB PO SCH (23:30)
[2021-03-16] MEDS ORDERED: PNEUMOCOCCAL POLYSACCHARIDES 25 MCG/0.5 ML VIAL/SYR IM ONE (01:30)
[2021-03-16] MEDS: MoRPHine SULFATE 2 MG/ML CARP IV PRN ×2 (07:16→12:25)
[2021-03-16 07:28] LABS: Hematocrit (blood only) 39.7 % (37-47); Mean Corpuscular Hemoglobin 31.1 pg (25-34); Mean Corpuscular Hgb Conc 35.3 g/dL (32-36); Mean Corpuscular Volume 88.2 fL (80-100); RDW Coefficient of Variation 13.5 % (11.5-14.5); RDW Standard Deviation 44.3 fL (36.4-46.3); White Blood Count 2.97 K/uL (4.8-10.8)
[2021-03-16 07:50] LABS: Partial Thromboplastin Ratio 4.7
[2021-03-16 07:54] LABS: Mean Platelet Volume 10.7 fL (7.4-10.4); Platelet Count 64 K/uL (130-400)
[2021-03-16 08:02] LABS: Basophils # (auto) 0.04 K/uL (0-0.2); Basophils % (auto) 1.3 %; Immature Granulocytes # (auto) 0.01 K/uL (0.00-0.02); Immature Granulocytes % (auto) 0.3 %; Lymphocytes # (auto) 0.62 K/uL (1.2-3.4); Lymphocytes % (auto) 20.9 %; Monocytes # (auto) 0.25 K/uL (0.11-0.59); Monocytes % (auto) 8.4 %; Neutrophils # (auto) 2.05 K/uL (1.4-6.5); Neutrophils % (auto) 69.1 %
[2021-03-16 08:08] LABS: BUN Creatinine Ratio 17.6 (10-20); Calcium 7.7 mg/dl (8.5-10.1); Creatinine Clr Calc Pharmacy 44.6 ml/min; Est GFR (African American) 78.8 ml/min; Potassium 3.2 mmol/L (3.5-5.1)
[2021-03-16 08:11] LABS: Bilirubin,Total 1.2 mg/dl (0.2-1)
[2021-03-16 08:21] LABS: Partial Thromboplastin Time 124.4 Seconds (21.0-31.0)
[2021-03-16] MEDS ORDERED: ONDANSETRON INJ 2 MG/ML 2 ML VIAL IV PRN ×2 (08:30→13:56)
[2021-03-16] MEDS ORDERED: ONDANSETRON INJ 2 MG/ML 2 ML VIAL ONE (08:33)
[2021-03-16 08:53] LABS: Hepatitis B Surf Ag Rflx Conf Neg (Neg)
[2021-03-16 09:22] LABS: Hepatitis C IgG 13Yrs+Old_Rflx Neg (Neg)
--- NOTE | 2021-03-16 10:34 | Medical Student Progress Note ---
Date of Service March 16, 2021 Assessment & Plan (1) Abdominal pain, acute, right upper quadrant: Karen La is a 65-year-old female with hyperlipidemia and possible history of stroke who presents with abdominal pain, headache, and fever. 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 - Labs pending for tick-borne illness. Patient does live in geographic distribution and have leukopenia, and thrombocytopenia; however, clinical pic ture does not point to tick-borne etiology with lack of myalgias/arthralgias. Will defer empiric treatment at this time. - Started PO prednisone 50 mg daily empirically for vasculitis. Defer other im munosuppressing agents until rheumatology consulted. - IV morphine 2 mg q2h PRN for pain control. - Ondansetron 4 mg IV Q4H PRN for nausea. - Continue serial abdominal exams. - Will obtain CT Angiogram tomorrow. (2) Vasculitis: (3) Thrombocytopenia: - Prior to administration of heparin. - Unknown etiology, tick-borne infection considered. Normal platelet count in 03/26. - Continue to monitor, particularly in the setting of heparin administration. (4) Headache: - Present on admission. - Potentially related to vasculitis. - Pain medication and steroids as above. (5) Hypercholesterolemia: - Continue statin per home regimen. (6) Thrombophlebitis of leg, left: - Chronic, stable. No acute intervention indicated. 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 - Consulted vascular surgery - no surgical intervention needed at this time. Appreciate recs. - Will continue heparin at this time. Pending results of CT angiogram may consider prolonged anticoagulation. (8) Patent foramen ovale: - Hold home aspirin at this time. FEN/GI: clear liquid diet. no IVF Code: full VTE: Heparin Dispo: med/surg w/ tele Admission and Anticipated Discharge Date Admission Date: March 15, 2021 Supervising Attestation I personally examined the patient and verified all velez points of history and exam, discussed case, and agree with decision making with Dr Jett Ongoing abdominal pain. Diffuse. Case discussed with rheumatologyinput appreciated. Vitals noted, in general she is awake and alert somewhat groggy due to pain medicine but otherwise no distress. HEENT normocephalic atraumatic mucous membranes moist. Breathing unlabored no accessory muscle use good effort. Abdomen is soft she has diffuse tenderness really almost equal throughout but no guarding/rebound/rigidity. No focal neuro deficits. 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 Labs sent for possible inciting factors. While she does live in a tick prevalent area, and her labs are consistent with anaplasmosis, the rest of her clinical picture is notand in discussion with rheumatology that would be a very unlikely infection to spark vasculitisso in that respect we will continue with serial exams (particularly given that the peripheral smear is negative). No other clear or overt infections that require active interventiontherefore steroids started today. CT angio per vascular surgery to be tomorrow. Continue heparin drip per vascular surgery. Pain control, supportive care, serial exams. Extensive discussion with patient and , answered all questions to the best my ability. Otherwise as above Subjective Ms. La states that her abdominal pain was controlled until she started to eat breakfast this morning at which time the abdominal pain and nausea began again. She was given morphine and ondansetron which did relieve the symptoms somewhat. She continues to have left temporal headache today. She is voiding well. She had a bowel movement last night and is ambulating well. Of note, patient states that she may have a history of stroke 15-20 years ago. At this time, she had a TTE and a PFO was visualized. She was on warfarin for anticoagulation after this. Additionally, she was previously taking 81 mg aspirin which was discontinued last summer for indication of 'capillary bleeding.' In the afternoon, re-evaluated patient for increased pain and administered additional morphine. Review of Systems Review of Systems: All systems reviewed & are unremarkable except as noted in Subjective Physical Exam Physical Exam: Patient is resting comfortably on exam. She is no acute distress. Constitutional: WD/WN, vitals as above Neck: Surgical scar present. Respiratory: normal respiratory effort, lungs clear to auscultation Cardiovascular: RRR, no murmur, no edema Gastrointestinal (Abdomen): Inspection/Auscultation: abdomen normal to inspection and normal bowel sounds; abdomen not distended and no abdominal edema Percussion/Palpation: + abdomen tender (tender to palpation in the bilateral upper quadarants) and abdomen soft; no guarding, abdomen not rigid and no hepatosplenomegaly In the afternoon: increased tenderness to palpation in upper abdomen Musculoskeletal: no cyanosis or clubbing, extremities motor strength 5/5 Skin: no rashes, warm and dry Psychiatric: A+Ox3, euthymic affect Results & Data ([facility]) Vital Signs (Past 12 Hours) Vital Signs Temp Pulse Pulse Resp BP BP Pulse Ox 03/16/21 08:00 37.1 C 80 18 131/79 97 03/16/21 07:03 83 03/16/21 02:54 37.3 C 72 16 162/82 H 96 03/16/21 00:47 37.1 C 71 70 18 144/74 H 99 03/15/21 23:30 70 23 143/82 H 97 Pulse Ox 03/16/21 08:00 03/16/21 07:03 03/16/21 02:54 03/16/21 00:47 99 03/15/21 23:30 Laboratory Results 03/16/21 03/16/21 03/16/21 07:06 07:06 07:06 WBC RBC Hgb Hct MCV MCH MCHC RDW Std Deviation RDW Coeff of Jasmin Plt Count MPV Immature Gran % (Auto) Neut % (Auto) Lymph % (Auto) [place] % (Auto) Eos % (Auto) Baso % (Auto) Neut # (Auto) Lymph # (Auto) [place] # (Auto) Eos # (Auto) Baso # (Auto) Immature Gran # (Auto) Platelet Estimate Peripher Smr Path Cons ESR PT INR APTT 124.4 H* PTT Ratio 4.7 Sodium Potassium Chloride Carbon Dioxide Anion Gap BUN Creatinine Est Cr Clr Drug Dosing Est GFR ( Amer) Est GFR (Non-Af Amer) BUN/Creatinine Ratio Glucose Lactate Calcium Total Bilirubin AST ALT Alkaline Phosphatase Lactate Dehydrogenase 761 H Total Creatine Kinase Troponin I C-Reactive Protein Total Protein Albumin Globulin Albumin/Globulin Ratio Lipase Urine Color Urine Appearance Urine pH Ur Specific [place] Urine Protein Urine Glucose (UA) Urine Ketones Urine Blood Urine Nitrite Urine Bilirubin Urine Urobilinogen Ur Leukocyte Esterase Urine RBC Urine WBC Ur Epithelial Cells Urine Bacteria Hyaline Casts Urine Mucus Anaplasma Smear COVID-19 Eval Order SARS-CoV-2 (PCR) Hep Bs Antigen Neg Hepatitis C Antibody Neg 03/16/21 03/16/21 03/15/21 07:06 07:06 20:31 WBC 2.97 L RBC 4.50 Hgb 14.0 Hct 39.7 MCV 88.2 MCH 31.1 MCHC 35.3 RDW Std Deviation 44.3 RDW Coeff of Jasmin 13.5 Plt Count 64 L MPV 10.7 H Immature Gran % (Auto) 0.3 Neut % (Auto) 69.1 Lymph % (Auto) 20.9 [place] % (Auto) 8.4 Eos % (Auto) 0.0 Baso % (Auto) 1.3 Neut # (Auto) 2.05 Lymph # (Auto) 0.62 L [place] # (Auto) 0.25 Eos # (Auto) 0.00 Baso # (Auto) 0.04 Immature Gran # (Auto) 0.01 Platelet Estimate Peripher Smr Path Cons ESR PT INR APTT PTT Ratio Sodium 135 L Potassium 3.2 L Chloride 104 Carbon Dioxide 22 Anion Gap 9.0 BUN 16 Creatinine 0.88 Est Cr Clr Drug Dosing 44.6 Est GFR ( Amer) 78.8 Est GFR (Non-Af Amer) 68.0 BUN/Creatinine Ratio 17.6 Glucose 130 H Lactate 2.8 H* Calcium 7.7 L Total Bilirubin 1.2 H AST 237 H ALT 175 H Alkaline Phosphatase 222 H Lactate Dehydrogenase Total Creatine Kinase 98 Troponin I C-Reactive Protein Total Protein 6.0 L Albumin 3.0 L Globulin 3.0 Albumin/Globulin Ratio 1.0 Lipase Urine Color Urine Appearance Urine pH Ur Specific [place] Urine Protein Urine Glucose (UA) Urine Ketones Urine Blood Urine Nitrite Urine Bilirubin Urine Urobilinogen Ur Leukocyte Esterase Urine RBC Urine WBC Ur Epithelial Cells Urine Bacteria Hyaline Casts Urine Mucus Anaplasma Smear See Comment COVID-19 Eval Order SARS-CoV-2 (PCR) Hep Bs Antigen Hepatitis C Antibody 03/15/21 03/15/21 03/15/21 20:31 20:31 20:29 WBC RBC Hgb Hct MCV MCH MCHC RDW Std Deviation RDW Coeff of Jasmin Plt Count MPV Immature Gran % (Auto) Neut % (Auto) Lymph % (Auto) [place] % (Auto) Eos % (Auto) Baso % (Auto) Neut # (Auto) Lymph # (Auto) [place] # (Auto) Eos # (Auto) Baso # (Auto) Immature Gran # (Auto) Platelet Estimate Peripher Smr Path Cons ESR 13 PT INR APTT PTT Ratio Sodium Potassium Chloride Carbon Dioxide Anion Gap BUN Creatinine Est Cr Clr Drug Dosing Est GFR ( Amer) Est GFR (Non-Af Amer) BUN/Creatinine Ratio Glucose Lactate Calcium Total Bilirubin AST ALT Alkaline Phosphatase Lactate Dehydrogenase Total Creatine Kinase Troponin I C-Reactive Protein 6.50 H Total Protein Albumin Globulin Albumin/Globulin Ratio Lipase Urine Color Yellow Urine Appearance Clear Urine pH 6.0 Ur Specific [place] 1.015 Urine Protein 1+ H Urine Glucose (UA) Negative Urine Ketones 1+ H Urine Blood Trace-intact H Urine Nitrite Negative Urine Bilirubin Negative Urine Urobilinogen Negative Ur Leukocyte Esterase Negative Urine RBC 0-4 Urine WBC 5-10 H Ur Epithelial Cells 5-10 H Urine Bacteria Negative Hyaline Casts 5-10 H Urine Mucus Present A Anaplasma Smear COVID-19 Eval Order SARS-CoV-2 (PCR) Hep Bs Antigen Hepatitis C Antibody 03/15/21 03/15/21 03/15/21 20:26 20:26 20:26 WBC RBC Hgb Hct MCV MCH MCHC RDW Std Deviation RDW Coeff of Jasmin Plt Count MPV Immature Gran % (Auto) Neut % (Auto) Lymph % (Auto) [place] % (Auto) Eos % (Auto) Baso % (Auto) Neut # (Auto) Lymph # (Auto) [place] # (Auto) Eos # (Auto) Baso # (Auto) Immature Gran # (Auto) Platelet Estimate Peripher Smr Path Cons ESR PT 10.4 INR 1.0 APTT PTT Ratio Sodium Potassium Chloride Carbon Dioxide Anion Gap BUN Creatinine Est Cr Clr Drug Dosing Est GFR ( Amer) Est GFR (Non-Af Amer) BUN/Creatinine Ratio Glucose Lactate Calcium Total Bilirubin AST ALT Alkaline Phosphatase Lactate Dehydrogenase Total Creatine Kinase Troponin I C-Reactive Protein Total Protein Albumin Globulin Albumin/Globulin Ratio Lipase Urine Color Urine Appearance Urine pH Ur Specific [place] Urine Protein Urine Glucose (UA) Urine Ketones Urine Blood Urine Nitrite Urine Bilirubin Urine Urobilinogen Ur Leukocyte Esterase Urine RBC Urine WBC Ur Epithelial Cells Urine Bacteria Hyaline Casts Urine Mucus Anaplasma Smear COVID-19 Eval Order Covid19 at [facility] SARS-CoV-2 (PCR) NEGATIVE Hep Bs Antigen Hepatitis C Antibody 03/15/21 03/15/21 17:25 17:25 WBC 2.69 L RBC 5.12 Hgb 16.3 H Hct 46.0 MCV 89.8 MCH 31.8 MCHC 35.4 RDW Std Deviation 45.2 RDW Coeff of Jasmin 13.5 Plt Count 61 L MPV 11.6 H Immature Gran % (Auto) 0.4 Neut % (Auto) 83.3 Lymph % (Auto) 14.5 [place] % (Auto) 1.1 Eos % (Auto) 0.0 Baso % (Auto) 0.7 Neut # (Auto) 2.24 Lymph # (Auto) 0.39 L [place] # (Auto) 0.03 L Eos # (Auto) 0.00 Baso # (Auto) 0.02 Immature Gran # (Auto) 0.01 Platelet Estimate Decreased L Peripher Smr Path Cons ESR PT INR APTT PTT Ratio Sodium 138 Potassium 3.5 Chloride 106 Carbon Dioxide 22 Anion Gap 10.0 BUN 20 H Creatinine 1.17 Est Cr Clr Drug Dosing 33.5 Est GFR ( Amer) 55.8 Est GFR (Non-Af Amer) 48.2 BUN/Creatinine Ratio 17.2 Glucose 154 H Lactate Calcium 8.8 Total Bilirubin 1.5 H AST 123 H ALT 99 H Alkaline Phosphatase 280 H Lactate Dehydrogenase Total Creatine Kinase Troponin I < 0.015 C-Reactive Protein Total Protein 7.2 Albumin 3.6 Globulin 3.6 Albumin/Globulin Ratio 1.0 Lipase 113 Urine Color Urine Appearance Urine pH Ur Specific [place] Urine Protein Urine Glucose (UA) Urine Ketones Urine Blood Urine Nitrite Urine Bilirubin Urine Urobilinogen Ur Leukocyte Esterase Urine RBC Urine WBC Ur Epithelial Cells Urine Bacteria Hyaline Casts Urine Mucus Anaplasma Smear COVID-19 Eval Order SARS-CoV-2 (PCR) Hep Bs Antigen Hepatitis C Antibody Medications Administered Current Inpatient Medications Heparin Sodium/Dextrose (Heparin Sodium/Dextrose) 25,000 units in 500 mls @ 13 mls/hr IV .Q24H SAMUEL; Protocol Stop: 04/14/21 20:29 Last Titration: 03/16/21 10:25 Dose: 650 units/hr, 13 mls/hr Documented by: Morphine Sulfate (Morphine Sulfate 2 Mg/Ml Carp) 2 mg IV Q2H PRN PRN Reason: Severe Pain Stop: 03/30/21 00:46 Last Admin: 03/16/21 12:25 Dose: 2 mg Documented by: Ondansetron HCl (Ondansetron Inj 2 Mg/Ml 2 Ml Vial) 4 mg IV Q4H PRN PRN Reason: Nausea Stop: 04/15/21 08:29 Last Admin: 03/16/21 12:38 Dose: 4 mg Documented by: Prednisone (Prednisone 50 Mg Tab) 50 mg PO DAILY SAMUEL Stop: 04/15/21 12:29
--- NOTE | 2021-03-16 13:31 | Consultation ---
Date of Consultation March 16, 2021 Assessment & Plan (1) Vasculitis: On CAT scan showedHer hepatic arteries appear to be edematous with areas of narrowing and/or occlusion.There is some mild poststenotic dilatation on the celiac axis. Her C-reactive protein is elevated however sed rate is normal. Her liver enzymes are mildly elevated today. This point no surgical intervention is needed.I would continue to treat her with steroids for presumed vasculitis. I will reorder CT scan and doing CT angiogram tomorrow for follow-up of her hepatic arteries. Thank you very much for letting us participate in the care of this patient. 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 Prior to this she has no complaints of abdominal pain either postprandial or at any other time.This the first time she is experienced this type of pain. Allergies Allergy/AdvReac Type Severity Reaction Status Date / Time meperidine AdvReac Intermediate N/V AND Verified 03/15/21 19:45 AMNESIA midazolam AdvReac Intermediate AMNESIA Verified 03/15/21 19:45 procaine AdvReac Intermediate HEART Verified 03/15/21 19:45 PALPITATIONS Home Medications Medication Instructions Recorded Confirmed Type cholecalciferol (vitamin D3) 125 5,000 units PO DAILY #30 cap 10/05/19 03/15/21 Rx mcg (5,000 unit) capsule vitamin B complex 1 tab PO DAILY #30 tab 10/05/19 03/15/21 Rx biotin 10 mg tablet 10 mg PO DAILY 12/31/19 03/15/21 History simvastatin 20 mg tablet 20 mg PO QPM #90 tab 04/14/20 03/15/21 Rx ascorbate calcium (vitamin C) 500 500 mg PO DAILY PRN tab 05/10/20 03/15/21 History mg tablet aspirin 81 mg tablet,delayed 81 mg PO Q OTHER DAY #30 tab 05/10/20 03/15/21 Rx release lutein 10 mg PO DAILY 03/15/21 03/15/21 History Patient History Medical History Encounter for counseling for travel Encounter for gynecological examination (general) (routine) without abnormal findings Encounter for immunization Encounter for screening for other suspected endocrine disorder Lateral epicondylitis, unspecified elbow Migraine without aura, not intractable, without status migrainosus Need for immunization using typhoid-paratyphoid (TAB) vaccine alone Need for influenza vaccination Need for pneumococcal vaccination Need for prophylactic measure Rash and other nonspecific skin eruption Surgical History S/P colonoscopy 2006, q 5yr S/P thyroid surgery R sided d/t cyst, age 14 S/P tubal ligation Family History Father Colorectal cancer Mother Coronary heart disease Brother Aortic aneurysm Denies family history of Ovarian cancer Prostate cancer Myocardial infarction Breast cancer Social History Smoking Status: Never smoker Second Hand Exposure: No; Hx Alcohol Use: Yes Alcohol type: wine Alcohol Intake Frequency Comment: 8 times a year Hx Substance Use: No Preferred Language: Argentine Communication Ability: Effective Visual Impairment: No Limitations Home Lighting Adviser Required: No Beliefs That Will Affect Care: None marital status: Current Living Situation: Spouse current occupational status: retired Other Information That Helps Us Care for You: No Feels Safe at Home: Yes Safety Concerns: Feels Safe At This Time Childhood Exposure to Second-Hand Smoke: No Dental Care, Regularly: Yes Physical Activity Frequency: 1-2 Times per Week Seatbelt Use: always Sunscreen Use: Yes Assistive Devices: Glasses Review of Systems Review of Systems: All systems reviewed & are unremarkable except as noted in HPI & below Physical Exam Constitutional: well nourished and + acute distress (Mild distress.) Neck: trachea midline; neck nontender Respiratory: normal respiratory effort, lungs clear to auscultation Cardiovascular: Rate/Rhythm: regular rate and regular rhythm Vessels: normal peripheral pulses and femoral pulses present; no abdominal aortic bruit There is no tenderness of the temporal arteries. Gastrointestinal (Abdomen): Inspection/Auscultation: abdomen normal to inspection; abdomen not distended Percussion/Palpation: + abdomen tender (Slightly tender in the upper quadrants.More so on the right than the left.) and abdomen soft; no abdominal mass and no pulsatile mass Neurologic: CN's II-XI intact bilaterally and moves all extremities Psychiatric: A+Ox3, euthymic affect Results & Data ([facility]) Vital Signs (Past 12 Hours) Vital Signs Temp Pulse Pulse Resp BP Pulse Ox 03/16/21 11:09 37 C 81 18 137/77 95 03/16/21 08:00 37.1 C 80 18 131/79 97 03/16/21 07:03 83 03/16/21 02:54 37.3 C 72 16 162/82 H 96
[2021-03-16] MEDS: predniSONE 50 MG TAB PO SCH (13:49)
[2021-03-16] MEDS ORDERED: ONDANSETRON INJ 2 MG/ML 2 ML VIAL IV ONE (13:56)
[2021-03-16] MEDS: MoRPHine SULFATE 4 MG/ML 1 ML CARP\\VIAL IV PRN ×2 (14:26→19:31)
[2021-03-16 14:39] LABS: Lyme Ab IgG w/WB Rflx Negative (Negative); Lyme Ab IgM w/WB Rflx Negative (Negative)
[2021-03-16] MEDS ORDERED: Nursing to Pharmacy Communication SCH (15:30)
[2021-03-16 18:00] LABS: Partial Thromboplastin Ratio 3.7
[2021-03-16 18:05] LABS: Partial Thromboplastin Time 97.1 Seconds (21.0-31.0)
[2021-03-16] MEDS: HEPARIN SODIUM/DEXTROSE 25,000 UNITS/500 ML BAG IV SCH ×2 (18:16→19:14)
--- NOTE | 2021-03-16 18:36 | Billing Data ---
Date of Service March 16, 2021 Coding Level of Care Code 39619 Subseq Hosp Care Lvl 3
[2021-03-16] MEDS: ondansetron HCL 8 MG in DEXTROSE 5% 50 ML IV PRN (19:54)
[2021-03-16] MEDS ORDERED: SIMVASTATIN 20 MG TAB PO SCH (21:00)
[2021-03-17 01:54] LABS: Partial Thromboplastin Ratio 3.8
[2021-03-17 01:59] LABS: Partial Thromboplastin Time 99.4 Seconds (21.0-31.0)
[2021-03-17] MEDS: MoRPHine SULFATE 4 MG/ML 1 ML CARP\\VIAL IV PRN ×2 (02:15→08:24)
[2021-03-17] MEDS: ondansetron HCL 8 MG in DEXTROSE 5% 50 ML IV PRN ×2 (02:20→08:24)
--- NOTE | 2021-03-17 03:56 | Billing Data ---
Date of Service March 15, 2021 Coding Level of Care Code 97087 Initial Inpt Care Lvl 3
[2021-03-17 06:00] LABS: Partial Thromboplastin Time 51.9 Seconds (21.0-31.0)
[2021-03-17 06:19] LABS: Hematocrit (blood only) 31.8 % (37-47); Hemoglobin 11.1 g/dL (12.0-16.0); Mean Corpuscular Hemoglobin 30.7 pg (25-34); Mean Corpuscular Hgb Conc 34.9 g/dL (32-36); Mean Corpuscular Volume 88.1 fL (80-100); Mean Platelet Volume 10.9 fL (7.4-10.4); Platelet Count 67 K/uL (130-400); RDW Coefficient of Variation 13.4 % (11.5-14.5); RDW Standard Deviation 43.2 fL (36.4-46.3); Red Blood Count 3.61 M/uL (4.2-5.4); White Blood Count 5.83 K/uL (4.8-10.8)
[2021-03-17 06:22] LABS: Hepatitis A Antibody IgM NON-REACTIVE (NON-REACTIVE); Hepatitis B Core Antibody IgM NON-REACTIVE (NON-REACTIVE)
[2021-03-17 06:22] LABS: Basophils # (auto) 0.18 K/uL (0-0.2); Basophils % (auto) 3.1 %; Giant Platelets 1+; Immature Granulocytes # (auto) 0.02 K/uL (0.00-0.02); Immature Granulocytes % (auto) 0.3 %; Lymphocytes # (auto) 2.19 K/uL (1.2-3.4); Lymphocytes % (auto) 37.6 %; Monocytes # (auto) 0.84 K/uL (0.11-0.59); Monocytes % (auto) 14.4 %; Neutrophils % (auto) 44.6 %
--- NOTE | 2021-03-17 06:22 | Electrocardiogram Report ---
Test Reason : Blood Pressure : / mmHG Vent. Rate : 065 BPM Atrial Rate : 065 BPM P-R Int : 172 ms QRS Dur : 104 ms QT Int : 422 ms P-R-T Axes : 061 014 037 degrees QTc Int : 438 ms Normal sinus rhythm Incomplete right bundle branch block Borderline ECG No previous ECGs available Confirmed by Yobani Barnett ([id number]) on 03/17/2021 6:22:23 AM Referred By: Elisabet Ruano Confirmed By:Yobani Barnett
[2021-03-17 06:46] LABS: Albumin Globulin Ratio 0.9 (0.9-2); Albumin Level 2.8 gm/dl (3.4-5.0); BUN Creatinine Ratio 12.7 (10-20); Bilirubin,Total 0.8 mg/dl (0.2-1); Calcium 7.1 mg/dl (8.5-10.1); Creatinine Clr Calc Pharmacy 15.6 ml/min; Est GFR (African American) 19.5 ml/min; Est GFR (Non-African American) 16.8 ml/min; Globulin 3.1 gm/dl (2.5-4.0); Potassium 4.2 mmol/L (3.5-5.1); Total Protein 5.9 gm/dl (6.4-8.2)
[2021-03-17] MEDS ORDERED: LACTATED RINGER'S 1,000 ML IV SCH (08:15)
[2021-03-17] MEDS: predniSONE 50 MG TAB PO SCH (08:25)
--- NOTE | 2021-03-17 08:41 | Gastrointestinal Consultation ---
Date of Consultation March 17, 2021 Assessment & Plan (1) Elevated liver function tests: Elevated liver function testing: The patient is a pleasant 65-year-old female who presented to the emergency department 03/15/2021 due to right upper quadrant pain. She was subsequently admitted for further evaluation due to abnormal CT of the abdomen pelvis and vascular service was consulted. The patient has had significant elevation of liver function testing since admission. This morning AST 6036, ALT 3152, alk phos 637, with total bilirubin 0.8. Hepatitis A antibody is negative, hepatitis B surface antigen is negative, hepatitis B core antibody is negative, hepatitis C antibody is negative. Autoimmune work-up is pending. Lyme disease IgM and IgG are both negative. Probable cause of transaminitis is ischemia. CT angiogram is pending. Patient is currently on a Heparin drip. Consider corticosteroids. Case reviewed with Dr. Meza. Please refer to supervising physician addendum for further recommendations. History of Present Illness Attending Physician: Murphy Vu DO History of Present Illness The patient is a pleasant 65-year-old female with past medical history to include hyperlipidemia and history of migraines who presented to the emergency department 03/15/2021 due to complaints of right upper quadrant abdominal pain. The patient was subsequently admitted due to abnormal CT the abdomen and pelvis demonstrating hepatic arteries that were edematous with areas of narrowing and/or occlusion with some mild poststenotic dilation on the celiac axis. She was subsequently admitted for further management. Vascular surgeon consult has been obtained. GI was consulted due to transaminitis. On exam/interview today, the patient reports that she began having what she describes as "flulike symptoms" on Saturday morning. She began experiencing fever, chills, nausea, intermittent stabbing headache. She states she was able to continue her normal activities and was even gardening. She reports that pain started in her right upper quadrant and she had some vomiting beginning on Saturday prior to her presentation in the emergency department. She has received her Covid vaccinations in the beginning of November received her first 1 in the end of November received her second 1. Now she reports that she is having some bilateral lower abdominal pain. She does have a mild nausea/queasy sensation. She denies any need to vomit. Denies any chest pain or dizziness. Her last bowel movement was Saturday prior to her admission. She denies any melena or hematochezia. Abdominal surgical history includes tubal ligation. 04/28/2018: Colonoscopy notes are reviewed performed by Dr. Lacey which demonstrated diverticulosis of the sigmoid colon. No specimens were collected. Recommendation for repeat colonoscopy in 5 years for surveillance The patient is a lifetime non-smoker. She reports an occasional glass of wine. She denies any use of recreational drugs including marijuana. She lives at her home with her . She has 2 children. She was retired. 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 Allergies Allergy/AdvReac Type Severity Reaction Status Date / Time meperidine AdvReac Intermediate N/V AND Verified 03/15/21 19:45 AMNESIA midazolam AdvReac Intermediate AMNESIA Verified 03/15/21 19:45 procaine AdvReac Intermediate HEART Verified 03/15/21 19:45 PALPITATIONS Home Medications Medication Instructions Recorded Confirmed Type cholecalciferol (vitamin D3) 125 5,000 units PO DAILY #30 cap 10/05/19 03/15/21 Rx mcg (5,000 unit) capsule vitamin B complex 1 tab PO DAILY #30 tab 10/05/19 03/15/21 Rx biotin 10 mg tablet 10 mg PO DAILY 12/31/19 03/15/21 History simvastatin 20 mg tablet 20 mg PO QPM #90 tab 04/14/20 03/15/21 Rx ascorbate calcium (vitamin C) 500 500 mg PO DAILY PRN tab 05/10/20 03/15/21 History mg tablet aspirin 81 mg tablet,delayed 81 mg PO Q OTHER DAY #30 tab 05/10/20 03/15/21 Rx release lutein 10 mg PO DAILY 03/15/21 03/15/21 History Patient History Medical History Encounter for counseling for travel Encounter for gynecological examination (general) (routine) without abnormal findings Encounter for immunization Encounter for screening for other suspected endocrine disorder Lateral epicondylitis, unspecified elbow Migraine without aura, not intractable, without status migrainosus Need for immunization using typhoid-paratyphoid (TAB) vaccine alone Need for influenza vaccination Need for pneumococcal vaccination Need for prophylactic measure Rash and other nonspecific skin eruption Surgical History S/P colonoscopy 2006, q 5yr S/P thyroid surgery R sided d/t cyst, age 14 S/P tubal ligation Family History Father Colorectal cancer Mother Coronary heart disease Brother Aortic aneurysm Denies family history of Ovarian cancer Prostate cancer Myocardial infarction Breast cancer Social History Smoking Status: Never smoker Second Hand Exposure: No; Hx Alcohol Use: Yes Alcohol type: wine Alcohol Intake Frequency Comment: 8 times a year Hx Substance Use: No Preferred Language: Tuvaluan Communication Ability: Effective Visual Impairment: No Limitations Raise Miner Required: No Beliefs That Will Affect Care: None marital status: Current Living Situation: Spouse current occupational status: retired Other Information That Helps Us Care for You: No Feels Safe at Home: Yes Safety Concerns: Feels Safe At This Time Childhood Exposure to Second-Hand Smoke: No Dental Care, Regularly: Yes Physical Activity Frequency: 1-2 Times per Week Seatbelt Use: always Sunscreen Use: Yes Assistive Devices: Glasses Review of Systems Review of Systems: All systems reviewed & are unremarkable except as noted in Subjective Physical Exam Constitutional: WD/WN, vitals as above Wears corrective lenses ENMT: Ears: no external ear abnormality Nose: no external nose abnormality Neck: normal visual inspection and trachea midline Respiratory: normal respiratory effort, lungs clear to auscultation Cardiovascular: Rate/Rhythm: regular rate and regular rhythm Extremities: no edema Gastrointestinal (Abdomen): Inspection/Auscultation: abdomen normal to inspection and normal bowel sounds; abdomen not distended Per cussion/Palpation: + abdomen tender (Right upper quadrant and bilateral lower quadrants), + guarding (Right upper quadrant), abdomen soft and + tympanic to percussion; abdomen not rigid Musculoskeletal: Extremities: extremities normal to inspection Psychiatric: Orientation: alert and oriented x 3 Results & Data ([facility]) Vital Signs (Past 12 Hours) Vital Signs Temp Pulse Pulse Resp BP Pulse Ox 03/17/21 07:36 36.4 C L 90 16 118/72 92 03/17/21 05:36 101 H 03/17/21 04:18 36.5 C 95 H 18 100/61 95 03/16/21 23:38 36.5 C 102 H 18 99/68 L 96 Laboratory Results - last 24 hr 03/16/21 03/16/21 03/16/21 07:06 07:06 07:06 WBC RBC Hgb Hct MCV MCH MCHC RDW Std Deviation RDW Coeff of Jasmin Plt Count MPV Immature Gran % (Auto) Neut % (Auto) Lymph % (Auto) [place] % (Auto) Eos % (Auto) Baso % (Auto) Neut # (Auto) Lymph # (Auto) [place] # (Auto) Eos # (Auto) Baso # (Auto) Immature Gran # (Auto) Giant Platelets Peripher Smr Path Cons APTT PTT Ratio Sodium Potassium Chloride Carbon Dioxide Anion Gap BUN Creatinine Est Cr Clr Drug Dosing Est GFR ( Amer) Est GFR (Non-Af Amer) BUN/Creatinine Ratio Glucose Calcium Total Bilirubin AST ALT Alkaline Phosphatase Total Protein Albumin Globulin Albumin/Globulin Ratio Cryoglobulin Cryoglobulin Cryocrit Lyme Disease IgG Ab Lyme Disease IgM Ab Hepatitis A IgM Ab NON-REACTIVE Hep Bs Antigen Neg Hep B Core IgM Ab NON-REACTIVE Hepatitis C Antibody Neg Flow Cytometry Comment 03/16/21 03/16/21 03/16/21 07:06 07:06 17:26 WBC RBC Hgb Hct MCV MCH MCHC RDW Std Deviation RDW Coeff of Jasmin Plt Count MPV Immature Gran % (Auto) Neut % (Auto) Lymph % (Auto) [place] % (Auto) Eos % (Auto) Baso % (Auto) Neut # (Auto) Lymph # (Auto) [place] # (Auto) Eos # (Auto) Baso # (Auto) Immature Gran # (Auto) Giant Platelets Peripher Smr Path Cons APTT 97.1 H* PTT Ratio 3.7 Sodium Potassium Chloride Carbon Dioxide Anion Gap BUN Creatinine Est Cr Clr Drug Dosing Est GFR ( Amer) Est GFR (Non-Af Amer) BUN/Creatinine Ratio Glucose Calcium Total Bilirubin AST ALT Alkaline Phosphatase Total Protein Albumin Globulin Albumin/Globulin Ratio Cryoglobulin Cryoglobulin Cryocrit Lyme Disease IgG Ab Negative Lyme Disease IgM Ab Negative Hepatitis A IgM Ab Hep Bs Antigen Hep B Core IgM Ab Hepatitis C Antibody Flow Cytometry Comment Pending 03/17/21 03/17/21 03/17/21 01:19 05:21 05:21 WBC 5.83 RBC 3.61 L Hgb 11.1 L Hct 31.8 L MCV 88.1 MCH 30.7 MCHC 34.9 RDW Std Deviation 43.2 RDW Coeff of Jasmin 13.4 Plt Count 67 L MPV 10.9 H Immature Gran % (Auto) 0.3 Neut % (Auto) 44.6 Lymph % (Auto) 37.6 [place] % (Auto) 14.4 Eos % (Auto) 0.0 Baso % (Auto) 3.1 Neut # (Auto) 2.60 Lymph # (Auto) 2.19 [place] # (Auto) 0.84 H Eos # (Auto) 0.00 Baso # (Auto) 0.18 Immature Gran # (Auto) 0.02 Giant Platelets 1+ Peripher Smr Path Cons APTT 99.4 H* PTT Ratio 3.8 Sodium Potassium Chloride Carbon Dioxide Anion Gap BUN Creatinine Est Cr Clr Drug Dosing Est GFR ( Amer) Est GFR (Non-Af Amer) BUN/Creatinine Ratio Glucose Calcium Total Bilirubin AST ALT Alkaline Phosphatase Total Protein Albumin Globulin Albumin/Globulin Ratio Cryoglobulin Pending Cryoglobulin Cryocrit Pending Lyme Disease IgG Ab Lyme Disease IgM Ab Hepatitis A IgM Ab Hep Bs Antigen Hep B Core IgM Ab Hepatitis C Antibody Flow Cytometry Comment 03/17/21 03/17/21 05:21 05:21 WBC RBC Hgb Hct MCV MCH MCHC RDW Std Deviation RDW Coeff of Jasmin Plt Count MPV Immature Gran % (Auto) Neut % (Auto) Lymph % (Auto) [place] % (Auto) Eos % (Auto) Baso % (Auto) Neut # (Auto) Lymph # (Auto) [place] # (Auto) Eos # (Auto) Baso # (Auto) Immature Gran # (Auto) Giant Platelets Peripher Smr Path Cons APTT 51.9 H* PTT Ratio 2.0 Sodium 132 L Potassium 4.2 D Chloride 99 Carbon Dioxide 21 Anion Gap 12.0 H BUN 36 H D Creatinine 2.79 H D Est Cr Clr Drug Dosing 15.6 Est GFR ( Amer) 19.5 Est GFR (Non-Af Amer) 16.8 BUN/Creatinine Ratio 12.7 Glucose 162 H Calcium 7.1 L Total Bilirubin 0.8 AST 6036 H ALT 3152 H Alkaline Phosphatase 637 H D Total Protein 5.9 L Albumin 2.8 L Globulin 3.1 Albumin/Globulin Ratio 0.9 Cryoglobulin Cryoglobulin Cryocrit Lyme Disease IgG Ab Lyme Disease IgM Ab Hepatitis A IgM Ab Hep Bs Antigen Hep B Core IgM Ab Hepatitis C Antibody Flow Cytometry Comment 03/15/2021: CT A/P with IV contrast demonstrated - 1. Multifocal wall thickening with luminal irregularity and narrowing involves branches of the celiac trunk, notably with high-grade stenosis and poststenotic dilation involving the hepatic artery. Distal branches of the hepatic artery demonstrate areas of high-grade stenosis and probable occlusion. 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 Vascular interventional consultation recommended. 2. Linear hypodensity of the mid spleen is suggestive of an acute splenic infarct. No splenic artery or splenic vein occlusion identified. 3. Moderate periportal edema with trace perihepatic free fluid, likely reactive. 4. No bowel obstruction or bowel wall thickening. 5. Trace pleural effusions.
[2021-03-17] MEDS ORDERED: methylPREDNISolone 40 MG in SYRINGE 0 ML IV SCH (09:00)
[2021-03-17] MEDS ORDERED: OPTIRAY 350 500ml IV ONE (09:22)
[2021-03-17 09:45] LABS: INR 1.1 (0.9-1.1); Partial Thromboplastin Ratio 1.5; Partial Thromboplastin Time 39.8 Seconds (21.0-31.0); Prothrombin Time 10.9 Seconds (9.0-12.0)
[2021-03-17] MEDS ORDERED: RAPID SEQUENCE INDUCTION BAG ONE (09:48)
[2021-03-17 09:52] LABS: Echinocytes 1+
[2021-03-17] MEDS ORDERED: CONSULT PHARMACY STA (10:09)
[2021-03-17] MEDS ORDERED: SODIUM CHLORIDE 0.9% 250 ML IV PRN ×2 (10:10→13:25)
[2021-03-17] MEDS ORDERED: Standard Conc 16mcg/mL; 8mg in 500mL IV SCH (10:15)
[2021-03-17] MEDS ORDERED: [UNRECOGNIZED DRUG - MIXTURE] IV SCH (10:15)
[2021-03-17] MEDS ORDERED: PROTAMINE SULFATE 10 MG in DEXTROSE 5% 50 ML IV ONE (10:15)
--- NOTE | 2021-03-17 10:17 | CT Scan Report ---
CT angio abdomen wo/w con CLINICAL HISTORY: hepatic vasculitis COMPARISON STUDY: CT scan dated 03/15/2021 FINDINGS: Unenhanced images the abdomen were performed. CT angiography abdomen was then performed in a dynamic fashion during intravenous administration of 120 cc of Optiray 350. MIP images were acquired. A dose reduction technique was utilized according the principles of ALARA. Images to the lung bases reveal trace bilateral pleural effusions, and bibasilar atelectatic changes. There is heterogeneous hepatic enhancement, likely secondary to areas of vascular stenosis. There is a stable 8 mm right lobe hepatic cyst. No gallbladder abnormalities are visualized. There is a stable cleft through the spleen. This could represent a laceration. There is extensive per isplenic hemorrhage. There is evidence for active extravasation. Neither adrenal gland is pathologically enlarged. No pancreatic masses are visualized. Since the prior study, the patient developed bilateral renal infarcts. 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 There are bilateral renal stenotic lesions. There are lumbar stenotic lesions. 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 There is a proximal celiac art justin stenosis. 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 There is mild left upper quadrant small bowel wall thickening.0 IMPRESSION: 1. Evidence of extensive vasculitis with celiac, superior mesenteric, hepatic, renal, and splenic art justin stenotic lesions. 2. 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 There is evidence for active hemorrhage from the splenic artery with a large perisplenic hematoma and peripancreatic hematoma. There is a persistent s plenic cleft/laceration. 3. 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 4. 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 5. There is interval development of bilateral renal infarcts. 6. There is heterogeneous hepatic enhancement, likely secondary to hepatic artery stenotic lesions. 7. The scan findings were discussed with the ICU attending physician. ACT 112: Negative or not required by law. Electronically signed by: Andi Hamilton M.D. 03/17/2021 10:16 AM
[2021-03-17 10:42] LABS: Albumin Level 2.7 gm/dl (3.4-5.0); Bilirubin Direct 0.3 mg/dl (0-0.2); Bilirubin,Total 0.9 mg/dl (0.2-1); Total Protein 5.7 gm/dl (6.4-8.2)
--- NOTE | 2021-03-17 11:03 | Critical Care Consultation ---
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 -Discussed with vascular surgery transfer to tertiary [facility] Heme: Acute blood loss anemia -Given protamine for heparin reversal DVT prophylaxis: Chemoprophylaxis contraindicated Endocrine: ICU hyperglycemia protocol Vascular access: Large-bore double-lumen catheter right IJ, right femoral arterial line Code Status: Full code Disposition: Anticipated transfer to tertiary [facility] (2) Renal infarct: (3) Elevated liver function tests: (4) Vasculitis: (5) Splenic infarct: Supervising Physician Co-Signing Physician Notes I discussed the case with vascular surgery radiology and hospitalist medicine I have personally spent 60 minutes of critical care time in the direct management of this patient. This is a life/limb threatening event. This includes time spent evaluating patient, direct bedside care, chart review, placing orders, interpretation of diagnostic studies, discussion with consultants, patient, and/or family members regarding treatment decisions, as well as other required patient management activities. This time is exclusive of all separately billable procedures, and teaching time and separate from and in addition to any other critical care service time. 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 I contacted vascular surgery who has evaluated the patient and recommending transfer to tertiary [facility]. Hospitalist medicine is in the process of contacting the family I continued resuscitative efforts with the patient. Allergies Allergy/AdvReac Type Severity Reaction Status Date / Time meperidine AdvReac Intermediate N/V AND Verified 03/15/21 19:45 AMNESIA midazolam AdvReac Intermediate AMNESIA Verified 03/15/21 19:45 procaine AdvReac Intermediate HEART Verified 03/15/21 19:45 PALPITATIONS Home Medications Medication Instructions Recorded Confirmed Type cholecalciferol (vitamin D3) 125 5,000 units PO DAILY #30 cap 10/05/19 03/15/21 Rx mcg (5,000 unit) capsule vitamin B complex 1 tab PO DAILY #30 tab 10/05/19 03/15/21 Rx biotin 10 mg tablet 10 mg PO DAILY 12/31/19 03/15/21 History simvastatin 20 mg tablet 20 mg PO QPM #90 tab 04/14/20 03/15/21 Rx ascorbate calcium (vitamin C) 500 500 mg PO DAILY PRN tab 05/10/20 03/15/21 History mg tablet aspirin 81 mg tablet,delayed 81 mg PO Q OTHER DAY #30 tab 05/10/20 03/15/21 Rx release lutein 10 mg PO DAILY 03/15/21 03/15/21 History Patient History Medical History Encounter for counseling for travel Encounter for gynecological examination (general) (routine) without abnormal findings Encounter for immunization Encounter for screening for other suspected endocrine disorder Lateral epicondylitis, unspecified elbow Migraine without aura, not intractable, without status migrainosus Need for immunization using typhoid-paratyphoid (TAB) vaccine alone Need for influenza vaccination Need for pneumococcal vaccination Need for prophylactic measure Rash and other nonspecific skin eruption Surgical History S/P colonoscopy 2006, q 5yr S/P thyroid surgery R sided d/t cyst, age 14 S/P tubal ligation Family History Father Colorectal cancer Mother Coronary heart disease Brother Aortic aneurysm Denies family history of Ovarian cancer Prostate cancer Myocardial infarction Breast cancer Social History Smoking Status: Never smoker Second Hand Exposure: No; Hx Alcohol Use: Yes Alcohol type: wine Alcohol Intake Frequency Comment: 8 times a year Hx Substance Use: No Preferred Language: Kazakh Communication Ability: Effective Visual Impairment: No Limitations Immigration Law Specialist Required: No Beliefs That Will Affect Care: None marital status: Current Living Situation: Spouse current occupational status: retired Other Information That Helps Us Care for You: No Feels Safe at Home: Yes Safety Concerns: Feels Safe At This Time Childhood Exposure to Second-Hand Smoke: No Dental Care, Regularly: Yes Physical Activity Frequency: 1-2 Times per Week Seatbelt Use: always Sunscreen Use: Yes Assistive Devices: Glasses Review of Systems Review of Systems: Unobtainable due to cognitive status Physical Exam Physical Exam: General: Glascow Coma Scale: Eyes: 1, Verbal 1T, Motor 4, Total 60. nontoxic. Skin: Warm, dry, pale Head: Atraumatic Ears, nose, mouth and throat: airway patent Cardiovascular: Decreased capillary refill Respiratory: [id number] ventilation assisting Gastrointestinal: Non distended Musculoskeletal: No deformity Results & Data Results & Data ([facility]) Vital Signs (Past 12 Hours) Vital Signs Temp Pulse Pulse Resp BP Pulse Ox 03/17/21 08:00 88 03/17/21 07:36 36.4 C L 90 16 118/72 92 03/17/21 05:36 101 H 03/17/21 04:18 36.5 C 95 H 18 100/61 95 03/16/21 23:38 36.5 C 102 H 18 99/68 L 96 Laboratory Results 03/17/21 03/17/21 03/17/21 Range/Units 09:39 09:09 09:06 WBC (4.8-10.8) K/uL RBC (4.2-5.4) M/uL Hgb (12.0-16.0) g/dL Hct (37-47) % MCV (80-100) fL MCH (25-34) pg MCHC (32-36) g/dL RDW Std Deviation (36.4-46.3) fL RDW Coeff of Jasmin (11.5-14.5) % Plt Count (130-400) K/uL MPV (7.4-10.4) fL Immature Gran % (Auto) % Neut % (Auto) % Lymph % (Auto) % [place] % (Auto) % Eos % (Auto) % Baso % (Auto) % Neut # (Auto) (1.4-6.5) K/uL Lymph # (Auto) (1.2-3.4) K/uL [place] # (Auto) (0.11-0.59) K/uL Eos # (Auto) (0-0.5) K/uL Baso # (Auto) (0-0.2) K/uL Immature Gran # (Auto) (0.00-0.02) K/uL Giant Platelets Echinocytes PT (9.0-12.0) Seconds INR (0.9-1.1) APTT (21.0-31.0) Seconds PTT Ratio Sodium (136-145) mmol/L Potassium (3.5-5.1) mmol/L Chloride (98-107) mmol/L Carbon Dioxide (21-32) mmol/L Anion Gap (3-11) BUN (7-18) mg/dl Creatinine (0.6-1.2) mg/dl Est Cr Clr Drug Dosing ml/min Est GFR ( Amer) ml/min Est GFR (Non-Af Amer) ml/min BUN/Creatinine Ratio (10-20) Glucose (70-99) mg/dl POC Glucose 178 H (70-99) mg/dl Lactate 3.1 H* (0.4-2.0) mmol/L Calcium (8.5-10.1) mg/dl Total Bilirubin 0.9 (0.2-1) mg/dl Direct Bilirubin 0.3 H (0-0.2) mg/dl AST 9319 H (15-37) U/L ALT 4136 H (12-78) U/L Alkaline Phosphatase 683 H (45-117) U/L Total Creatine Kinase 182 (26-192) U/L Total Protein 5.7 L (6.4-8.2) gm/dl Albumin 2.7 L (3.4-5.0) gm/dl Globulin (2.5-4.0) gm/dl Albumin/Globulin Ratio (0.9-2) Cryoglobulin Cryoglobulin Cryocrit Lyme Disease IgG Ab (Negative) Lyme Disease IgM Ab (Negative) Hepatitis A IgM Ab (NON-REACTIVE) Hep B Core IgM Ab (NON-REACTIVE) Flow Cytometry Comment Blood Type Blood Type Recheck Antibody Screen Crossmatch 03/17/21 03/17/21 03/17/21 Range/Units 09:06 05:21 05:21 WBC (4.8-10.8) K/uL RBC (4.2-5.4) M/uL Hgb (12.0-16.0) g/dL Hct (37-47) % MCV (80-100) fL MCH (25-34) pg MCHC (32-36) g/dL RDW Std Deviation (36.4-46.3) fL RDW Coeff of Jasmin (11.5-14.5) % Plt Count (130-400) K/uL MPV (7.4-10.4) fL Immature Gran % (Auto) % Neut % (Auto) % Lymph % (Auto) % [place] % (Auto) % Eos % (Auto) % Baso % (Auto) % Neut # (Auto) (1.4-6.5) K/uL Lymph # (Auto) (1.2-3.4) K/uL [place] # (Auto) (0.11-0.59) K/uL Eos # (Auto) (0-0.5) K/uL Baso # (Auto) (0-0.2) K/uL Immature Gran # (Auto) (0.00-0.02) K/uL Giant Platelets Echinocytes PT 10.9 (9.0-12.0) Seconds INR 1.1 (0.9-1.1) APTT 39.8 H 51.9 H* (21.0-31.0) Seconds PTT Ratio 1.5 2.0 Sodium (136-145) mmol/L Potassium (3.5-5.1) mmol/L Chloride (98-107) mmol/L Carbon Dioxide (21-32) mmol/L Anion Gap (3-11) BUN (7-18) mg/dl Creatinine (0.6-1.2) mg/dl Est Cr Clr Drug Dosing ml/min Est GFR ( Amer) ml/min Est GFR (Non-Af Amer) ml/min BUN/Creatinine Ratio (10-20) Glucose (70-99) mg/dl POC Glucose (70-99) mg/dl Lactate (0.4-2.0) mmol/L Calcium (8.5-10.1) mg/dl Total Bilirubin (0.2-1) mg/dl Direct Bilirubin (0-0.2) mg/dl AST (15-37) U/L ALT (12-78) U/L Alkaline Phosphatase (45-117) U/L Total Creatine Kinase (26-192) U/L Total Protein (6.4-8.2) gm/dl Albumin (3.4-5.0) gm/dl Globulin (2.5-4.0) gm/dl Albumin/Globulin Ratio (0.9-2) Cryoglobulin Cryoglobulin Cryocrit Lyme Disease IgG Ab (Negative) Lyme Disease IgM Ab (Negative) Hepatitis A IgM Ab (NON-REACTIVE) Hep B Core IgM Ab (NON-REACTIVE) Flow Cytometry Comment Blood Type O Positive Blood Type Recheck Antibody Screen NEGATIVE Crossmatch See Detail 03/17/21 03/17/21 03/17/21 Range/Units 05:21 05:21 05:21 WBC 5.83 (4.8-10.8) K/uL RBC 3.61 L (4.2-5.4) M/uL Hgb 11.1 L (12.0-16.0) g/dL Hct 31.8 L (37-47) % MCV 88.1 (80-100) fL MCH 30.7 (25-34) pg MCHC 34.9 (32-36) g/dL RDW Std Deviation 43.2 (36.4-46.3) fL RDW Coeff of Jasmin 13.4 (11.5-14.5) % Plt Count 67 L (130-400) K/uL MPV 10.9 H (7.4-10.4) fL Immature Gran % (Auto) 0.3 % Neut % (Auto) 44.6 % Lymph % (Auto) 37.6 % [place] % (Auto) 14.4 % Eos % (Auto) 0.0 % Baso % (Auto) 3.1 % Neut # (Auto) 2.60 (1.4-6.5) K/uL Lymph # (Auto) 2.19 (1.2-3.4) K/uL [place] # (Auto) 0.84 H (0.11-0.59) K/uL Eos # (Auto) 0.00 (0-0.5) K/uL Baso # (Auto) 0.18 (0-0.2) K/uL Immature Gran # (Auto) 0.02 (0.00-0.02) K/uL Giant Platelets 1+ Echinocytes 1+ PT (9.0-12.0) Seconds INR (0.9-1.1) APTT (21.0-31.0) Seconds PTT Ratio Sodium 132 L (136-145) mmol/L Potassium 4.2 D (3.5-5.1) mmol/L Chloride 99 (98-107) mmol/L Carbon Dioxide 21 (21-32) mmol/L Anion Gap 12.0 H (3-11) BUN 36 H D (7-18) mg/dl Creatinine 2.79 H D (0.6-1.2) mg/dl Est Cr Clr Drug Dosing 15.6 ml/min Est GFR ( Amer) 19.5 ml/min Est GFR (Non-Af Amer) 16.8 ml/min BUN/Creatinine Ratio 12.7 (10-20) Glucose 162 H (70-99) mg/dl POC Glucose (70-99) mg/dl Lactate (0.4-2.0) mmol/L Calcium 7.1 L (8.5-10.1) mg/dl Total Bilirubin 0.8 (0.2-1) mg/dl Direct Bilirubin (0-0.2) mg/dl AST 6036 H (15-37) U/L ALT 3152 H (12-78) U/L Alkaline Phosphatase 637 H D (45-117) U/L Total Creatine Kinase (26-192) U/L Total Protein 5.9 L (6.4-8.2) gm/dl Albumin 2.8 L (3.4-5.0) gm/dl Globulin 3.1 (2.5-4.0) gm/dl Albumin/Globulin Ratio 0.9 (0.9-2) Cryoglobulin Pending Cryoglobulin Cryocrit Pending Lyme Disease IgG Ab (Negative) Lyme Disease IgM Ab (Negative) Hepatitis A IgM Ab (NON-REACTIVE) Hep B Core IgM Ab (NON-REACTIVE) Flow Cytometry Comment Blood Type Blood Type Recheck Antibody Screen Crossmatch 03/17/21 03/16/21 03/16/21 Range/Units 01:19 17:30 17:26 WBC (4.8-10.8) K/uL RBC (4.2-5.4) M/uL Hgb (12.0-16.0) g/dL Hct (37-47) % MCV (80-100) fL MCH (25-34) pg MCHC (32-36) g/dL RDW Std Deviation (36.4-46.3) fL RDW Coeff of Jasmin (11.5-14.5) % Plt Count (130-400) K/uL MPV (7.4-10.4) fL Immature Gran % (Auto) % Neut % (Auto) % Lymph % (Auto) % [place] % (Auto) % Eos % (Auto) % Baso % (Auto) % Neut # (Auto) (1.4-6.5) K/uL Lymph # (Auto) (1.2-3.4) K/uL [place] # (Auto) (0.11-0.59) K/uL Eos # (Auto) (0-0.5) K/uL Baso # (Auto) (0-0.2) K/uL Immature Gran # (Auto) (0.00-0.02) K/uL Giant Platelets Echinocytes PT (9.0-12.0) Seconds INR (0.9-1.1) APTT 99.4 H* 97.1 H* (21.0-31.0) Seconds PTT Ratio 3.8 3.7 Sodium (136-145) mmol/L Potassium (3.5-5.1) mmol/L Chloride (98-107) mmol/L Carbon Dioxide (21-32) mmol/L Anion Gap (3-11) BUN (7-18) mg/dl Creatinine (0.6-1.2) mg/dl Est Cr Clr Drug Dosing ml/min Est GFR ( Amer) ml/min Est GFR (Non-Af Amer) ml/min BUN/Creatinine Ratio (10-20) Glucose (70-99) mg/dl POC Glucose (70-99) mg/dl Lactate (0.4-2.0) mmol/L Calcium (8.5-10.1) mg/dl Total Bilirubin (0.2-1) mg/dl Direct Bilirubin (0-0.2) mg/dl AST (15-37) U/L ALT (12-78) U/L Alkaline Phosphatase (45-117) U/L Total Creatine Kinase (26-192) U/L Total Protein (6.4-8.2) gm/dl Albumin (3.4-5.0) gm/dl Globulin (2.5-4.0) gm/dl Albumin/Globulin Ratio (0.9-2) Cryoglobulin Cryoglobulin Cryocrit Lyme Disease IgG Ab (Negative) Lyme Disease IgM Ab (Negative) Hepatitis A IgM Ab (NON-REACTIVE) Hep B Core IgM Ab (NON-REACTIVE) Flow Cytometry Comment Blood Type Blood Type Recheck O Positive Antibody Screen Crossmatch 03/16/21 03/16/21 03/16/21 Range/Units 07:06 07:06 07:06 WBC (4.8-10.8) K/uL RBC (4.2-5.4) M/uL Hgb (12.0-16.0) g/dL Hct (37-47) % MCV (80-100) fL MCH (25-34) pg MCHC (32-36) g/dL RDW Std Deviation (36.4-46.3) fL RDW Coeff of Jasmin (11.5-14.5) % Plt Count (130-400) K/uL MPV (7.4-10.4) fL Immature Gran % (Auto) % Neut % (Auto) % Lymph % (Auto) % [place] % (Auto) % Eos % (Auto) % Baso % (Auto) % Neut # (Auto) (1.4-6.5) K/uL Lymph # (Auto) (1.2-3.4) K/uL [place] # (Auto) (0.11-0.59) K/uL Eos # (Auto) (0-0.5) K/uL Baso # (Auto) (0-0.2) K/uL Immature Gran # (Auto) (0.00-0.02) K/uL Giant Platelets Echinocytes PT (9.0-12.0) Seconds INR (0.9-1.1) APTT (21.0-31.0) Seconds PTT Ratio Sodium (136-145) mmol/L Potassium (3.5-5.1) mmol/L Chloride (98-107) mmol/L Carbon Dioxide (21-32) mmol/L Anion Gap (3-11) BUN (7-18) mg/dl Creatinine (0.6-1.2) mg/dl Est Cr Clr Drug Dosing ml/min Est GFR ( Amer) ml/min Est GFR (Non-Af Amer) ml/min BUN/Creatinine Ratio (10-20) Glucose (70-99) mg/dl POC Glucose (70-99) mg/dl Lactate (0.4-2.0) mmol/L Calcium (8.5-10.1) mg/dl Total Bilirubin (0.2-1) mg/dl Direct Bilirubin (0-0.2) mg/dl AST (15-37) U/L ALT (12-78) U/L Alkaline Phosphatase (45-117) U/L Total Creatine Kinase (26-192) U/L Total Protein (6.4-8.2) gm/dl Albumin (3.4-5.0) gm/dl Globulin (2.5-4.0) gm/dl Albumin/Globulin Ratio (0.9-2) Cryoglobulin Cryoglobulin Cryocrit Lyme Disease IgG Ab Negative (Negative) Lyme Disease IgM Ab Negative (Negative) Hepatitis A IgM Ab NON-REACTIVE (NON-REACTIVE) Hep B Core IgM Ab NON-REACTIVE (NON-REACTIVE) Flow Cytometry Comment Pending Blood Type Blood Type Recheck Antibody Screen Crossmatch Coding Level of Care Code Critical Care 1st 30-74 mins Diagnoses Acute kidney injury N17.9 Renal infarct N28.0 Elevated liver function tests R79.89 Vasculitis I77.6 Splenic infarct D73.5
--- NOTE | 2021-03-17 11:04 | Procedure Note ---
Procedure Note Date of Service March 17, 2021 Supervising Physician Co-Signing Physician Notes Procedure Date: Noted above Procedure: Endotracheal intubation Pre-procedure Diagnosis: Altered mental status impending respiratory failure Post-procedure Diagnosis: same as above Prior to Procedure: Informed Consent: emergent Attending Staff: Patsy Garcia DO The identity of the patient was confirmed and a bedside time out was performed. Description of Procedure: Patient was evaluated and required intubation for impending respiratory failure. The patient was prepared in the usual fashion. A Gonzalez 2 laryngoscope was used. A 8 mm inner diameter endotrachial tube was placed endotracheally to 20 cm at the teeth. A grade 1 view was obtained. The endotracheal tube was noted to pass through the vocal cords. Chest rise was bilateral. Bilateral breath sounds were heard without air sounds in the abdomen. Mist was noted in the endotracheal tube. End-tidal CO2 measurement was positive. Chest x-ray shows proper endotracheal tube placement. Complications: None Findings: Not applicable Specimens: Not applicable Estimated blood loss: Zero Coding CPT Codes Resuscitation - Resuscitation: 78504 Endotracheal Intubation, emergency ([id number]) [facility] Procedure Codes (Charges) Resuscitation Resuscitation: 57188 Endotracheal Intubation, emergency
--- NOTE | 2021-03-17 11:07 | Procedure Note ---
Procedure Note Date of Service March 17, 2021 Procedure date: Noted above Procedure: Central venous access Pre-procedure indication: Need for vasoactive medication administration Post-procedure Diagnosis: same as above Prior to Procedure: Informed Consent: Emergent consent implied Attending Staff: Patsy Garcia DO Resident/APC: Not applicable Skin Prep: Chlorhexidine Anesthesia: 4 mL 1% lidocaine without epinephrine The identity of the patient was confirmed and a bedside time out was performed. Description of Procedure: After sterile prep and sterile drape utilizing standard sterile technique the superficial skin of the right subclavian area was anesthetized. The target vessel was identified and entered with an 18-gauge ne edle. Dark venous blood return was noted. A guidewire was inserted through the needle and into the vessel. The needle was withdrawn and a skin pedro luis was made. A tissue dilator was advanced via Seldinger technique and removed. A double lumen catheter was inserted via Seldinger technique and the guidewire removed. All ports eliseo and flushed easily. A Biopatch was placed, and the catheter was secured via silk suture. A sterile dressing was then applied. Complications: None Estimated blood loss: Trace Patient tolerated the procedure well. Procedure Date: Noted Above Procedure: Procedural Ultrasound Indication: Central venous access Attending: Patsy Garcia DO Resident/Physician Perforator Operator: Not applicable Artery visualized: Yes Vein visualized: Yes Compressible Vein: Yes Vein patent: Yes Guidewire or Short Catheter seen in vein prior to dilation: Yes Line confirmed in Vein with ultrasound: Yes Lung Sliding on side of attempt (if applicable): NA If no lung sliding or not obtained has CXR been ordered: Yes Impression: Successful central venous access placement Images obtained are saved for permanent record Coding CPT Codes Tubes, Drains, and Vasc Access - Tubes, Drains, and Vasc Access: [id number] Insertion Of Non-tunneled Catheter Age 3 Yrs> ([id number]) Tubes, Drains, and Vasc Access - Tubes, Drains, and Vasc Access: [id number] Ultrasound Guidance For Vascular ([id number]) [facility] [place] Procedure Codes (Charges) Tubes, Drains, and Vasc Access Procedure 1: Tubes, Drains, and Vasc Access: [id number] Insertion Of Non-tunneled Catheter Age 3 Yrs> Procedure 2: Tubes, Drains, and Vasc Access: [id number] Ultrasound Guidance For Vascular
--- NOTE | 2021-03-17 11:10 | Procedure Note ---
Procedure Note Date of Service March 17, 2021 Procedure date: Noted above Procedure: Right femoral artery cannulation Pre-procedure Diagnosis: Need for invasive monitoring, hypotension/frequent blood draws Post-procedure Diagnosis: same as above Prior to Procedure: Informed Consent: The risks, benefits, indications, potential complications, and alternatives were explained to the patient and informed consent obtained. Attending Staff: Patsy Garcia DO Skin Prep: Chlorhexidine Anesthesia: 3 mL 1% lidocaine without epinephrine The identity of the patient was confirmed and a bedside time out was performed. Description of Procedure: After sterile prep and sterile drape utilizing standard sterile technique the superficial skin of the right femoral artery was anesthetized. The target artery was identified via dynamic ultrasound guidance and entered with a 20-gauge arrow Angiocath. Pulsatile bright red blood return was noted. Via modified Seldinger technique the self-contained guidewire was advanced and the Angiocath advanced over the guidewire. The guidewire was removed and brisk arterial blood return was noted. The pressure monitor was connected, and the arterial line was secured via silk suture. A sterile dressing was then applied. Complications: None Estimated blood loss: Trace Patient tolerated the procedure well. Coding CPT Codes Tubes, Drains, and Vasc Access - Tubes, Drains, and Vasc Access: [id number] Insertion Catheter, Artery ([id number]) [facility] [place] Procedure Codes (Charges) Tubes, Drains, and Vasc Access Procedure 2: Tubes, Drains, and Vasc Access: [id number] Insertion Catheter, Artery
--- NOTE | 2021-03-17 11:11 | Nephrology Consultation ---
Date of Consultation March 17, 2021 Assessment & Plan (1) Acute kidney injury: * BERNIE due to contrast induced nephropathy and active acute vasculitis * Agree w/ IV Solumedrol, IV hydration and pressor support * Electrolyte balance is acceptable at this time. No acute indication for HD * ICU team planning transfer to tertiary care facility. Nephrology project consultant will be available if patient remains hospitalized and dialysis becomes necessary (2) Vasculitis: (3) Renal infarct: (4) Splenic infarct: History of Present Illness Reason for Consultation: BERNIE Attending Physician: Murphy Vu DO History of Present Illness Mrs. La has no h/o CKD. Her baseline Cr is 0.9. She presented to the ED for evaluation of abdominal discomfort. Evaluation revealed elevated LFT's. Abdominal CT w/ contrast revealed vascular changes of the celiac trunk suggestive of vasculitis/MAN. Cr subsequently ander to 2.9. Statin was stopped, serologic studies were ordered and IV Solumedrol started. 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 Interval development of bilateral renal infarcts was also noted. Mrs. La has been transferred to the ICU. Plan of care was discussed w/ ICU team. They [place] [facility] [place] Allergies Allergy/AdvReac Type Severity Reaction Status Date / Time meperidine AdvReac Intermediate N/V AND Verified 03/15/21 19:45 AMNESIA midazolam AdvReac Intermediate AMNESIA Verified 03/15/21 19:45 procaine AdvReac Intermediate HEART Verified 03/15/21 19:45 PALPITATIONS Home Medications Medication Instructions Recorded Confirmed Type cholecalciferol (vitamin D3) 125 5,000 units PO DAILY #30 cap 10/05/19 03/15/21 Rx mcg (5,000 unit) capsule vitamin B complex 1 tab PO DAILY #30 tab 10/05/19 03/15/21 Rx biotin 10 mg tablet 10 mg PO DAILY 12/31/19 03/15/21 History simvastatin 20 mg tablet 20 mg PO QPM #90 tab 04/14/20 03/15/21 Rx ascorbate calcium (vitamin C) 500 500 mg PO DAILY PRN tab 05/10/20 03/15/21 History mg tablet aspirin 81 mg tablet,delayed 81 mg PO Q OTHER DAY #30 tab 05/10/20 03/15/21 Rx release lutein 10 mg PO DAILY 03/15/21 03/15/21 History Patient History Medical History Encounter for counseling for travel Encounter for gynecological examination (general) (routine) without abnormal findings Encounter for immunization Encounter for screening for other suspected endocrine disorder Lateral epicondylitis, unspecified elbow Migraine without aura, not intractable, without status migrainosus Need for immunization using typhoid-paratyphoid (TAB) vaccine alone Need for influenza vaccination Need for pneumococcal vaccination Need for prophylactic measure Rash and other nonspecific skin eruption Surgical History S/P colonoscopy 2006, q 5yr S/P thyroid surgery R sided d/t cyst, age 14 S/P tubal ligation Family History Father Colorectal cancer Mother Coronary heart disease Brother Aortic aneurysm Denies family history of Ovarian cancer Prostate cancer Myocardial infarction Breast cancer Social History Smoking Status: Never smoker Second Hand Exposure: No; Hx Alcohol Use: Yes Alcohol type: wine Alcohol Intake Frequency Comment: 8 times a year Hx Substance Use: No Preferred Language: Portuguese Communication Ability: Effective Visual Impairment: No 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 Beliefs That Will Affect Care: None marital status: Current Living Situation: Spouse current occupational status: retired Other Information That Helps Us Care for You: No Feels Safe at Home: Yes Safety Concerns: Feels Safe At This Time Childhood Exposure to Second-Hand Smoke: No Dental Care, Regularly: Yes Physical Activity Frequency: 1-2 Times per Week Seatbelt Use: always Sunscreen Use: Yes Assistive Devices: Glasses Review of Systems Review of Systems: Unobtainable due to cognitive status Physical Exam Physical Exam: PE withheld due to active ICU procedures (ie., vascular access is being placed) Results & Data ([facility]) Vital Signs (Past 12 Hours) Vital Signs Temp Pulse Pulse Resp BP Pulse Ox 03/17/21 08:00 88 03/17/21 07:36 36.4 C L 90 16 118/72 92 03/17/21 05:36 101 H 03/17/21 04:18 36.5 C 95 H 18 100/61 95 03/16/21 23:38 36.5 C 102 H 18 99/68 L 96 Laboratory Tests 03/15/21 03/17/21 03/17/21 20:29 05:21 05:21 WBC 5.83 Hgb 11.1 L Hct 31.8 L Plt Count 67 L Sodium 132 L Potassium 4.2 D Chloride 99 Carbon Dioxide 21 BUN 36 H D Creatinine 2.79 H D Glucose 162 H Calcium 7.1 L Total Bilirubin 0.8 AST 6036 H ALT 3152 H Alkaline Phosphatase 637 H D Albumin 2.8 L Urine Color Yellow Urine Appearance Clear Urine pH 6.0 Ur Specific [place]le 1.015 Urine Protein 1+ H Urine Glucose (UA) Negative Urine Blood Trace-intact H Urine Bilirubin Negative Urine RBC 0-4 Urine WBC 5-10 H Hyaline Casts 5-10 H Urine Mucus Present A 03/17/21 Abdominal CTA: 1. Evidence of extensive vasculitis with celiac, superior mesenteric, hepatic, renal, and splenic artery stenotic lesions. 2. 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 There is evidence for active hemorrhage from the splenic artery with a large perisplenic hematoma and peripancreatic hematoma. There is a persistent splenic cleft/laceration. 3. There are bilateral renal stenotic lesions with interval development of bilateral renal infarcts. PG Care Time/CCT Total # of Minutes Spent Total Time Spent with Patient: Total time spent is greater than 50% in coordination of care (as documented) at patient's floor/unit and/or counseling patient: Coding Level of Care Code 42975 Inpt Consult Level 5 Diagnoses Acute kidney injury N17.9 Vasculitis I77.6 Renal infarct N28.0 Splenic infarct D73.5
[2021-03-17] MEDS ORDERED: MIDAZOLAM HCL 125MG/250ML D5W ONE (11:14)
[2021-03-17] MEDS ORDERED: STAT IV Infusion **Titration per Protocol STA (11:22)
[2021-03-17] MEDS ORDERED: fentaNYL citrate 100 MCG/2 ML VIAL IV PRN ×2 (11:22)
[2021-03-17] MEDS ORDERED: PROPOFOL BOLUS FROM BAG IV PRN (11:22)
--- NOTE | 2021-03-17 11:24 | XRay Report ---
XR chest 1V portable CLINICAL HISTORY: Respiratory failure COMPARISON STUDY: 03/15/2021 FINDINGS: There is been interval placement of an endotracheal tube 42 mm above the rafaela. There is b een interval placement of a right internal jugular central venous catheter. The tip projects over the superior vena cava. There is no pneumothorax. The cardiac and mediastinal contours remain stable. Th ere is no focal pulmonary consolidation. There is minor left basilar atelectasis.[ IMPRESSION: 1. Interval placement of an endotracheal tube 42 mm above the rafaela 2. Interval placement of a right internal jugular central venous catheter. No evidence of pneumothora x 3. No evidence of focal pulmonary consolidation ACT 112: Negative or not required by law. Electronically signed by: Andi Hamilton M.D. 03/17/2021 11:23 AM
[2021-03-17] MEDS ORDERED: propofoL 1,000 MG/100 ML VIAL IV SCH (11:30)
--- NOTE | 2021-03-17 11:53 | Med Student Discharge Summary ---
Date of Service March 17, 2021 Admission HPI Per Admitting Provider Karen La is a 65 y/o F w/ hx of HLD in good general health who presents w/ worsening RUQ abd pain that started 3 days ago. Since that time, she had fever (102.4F tmax, resolved today), chills, nausea, stabbing headache at temples, left mid-low back pain, and suprapubic pain. Patient presented to ED today because her RUQ pain (radiating to LUQ) was 10/10 and lasted for hours without improving. The RUQ pain was slightly better with back extended. Patient is unsure if symptoms are worse eating as she has eaten minimally. Currently, status post IV fentanyl x2 in the ED, patient's pains are mild, 1/10 severity at RUQ, 2/10 at suprapubic region. No headache. Denies hx arthritis, hepatitis, wt loss, fatigue, malar/discoid rash, kidney disease, seizure disorder. Family hx neg for autoimmune/rheumatoid. She has had petechiae on lower legs in prior weeks. Last BM this AM. Patient had both doses covid vaccine in December 2020. Patient has been hiking in the [place] regularly. She found a tick in her car 2 months ago, but none on her. ED course: started on Heparin drip because of concern for mesenteric ischemia. CT abd showing multi areas of vessel stenosis and splenic infarct. Lactate elevated to 2.6. Thrombocytopenic and leukopenic. IV fentanyl for pain. Admission Exam (Per Admitting) Constitutional Vitals reviewed, stable. Hypertensive at admission, improved after pain controlled. General: Grossly A&O. NAD. Cooperative. HEENT: Atraumatic, normocephalic. EOMI. PERRL. No mucosal lesions. Neck is supple. Pulm: Faint inspiratory fine crackles at posterior lung singh. Symmetrical chest rise. No respiratory distress. Cardiac: RRR, -mrg. Radial pulses intact and symmetrical. Radial and DP pulses 2+ bilaterally. LE edema. Abdominal: Mild-mod abd TTP, worst at epigastrium. Other tender locations are LUQ, RLQ, and suprapubic. No guarding or rebound. Back: No CVA TTP. Integumentary: No rash on face or extremities. Old healed scar at anterior lower neck. Several small ochoa hemangiomas. Discharge Data Consultations 03/15/21 21:15 ED Decision to Admit Stat 03/16/21 00:47 Consult Vascular Surgery Routine 03/17/21 08:11 Consult Gastroenterology Routine Consult Nephrology Routine Consult Rheumatology Routine 03/17/21 10:50 Burn CD for patient Stat Hospital Course (1) Abdominal pain, acute, right upper quadrant: Abdominal pain, vasculitis, thrombocytopenia On admission, patient was noted to have elevated transaminases and thrombocytopenia. 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 Patient was started on oral prednisone, pain was controlled with IV morphine. On hospital day two, vascular surgery was consulted and felt surgery was not indicated, recommended continu ation of patient's prednisone and heparin drip, and recommended CT angiography. Early on hospital day three, patient's clinical picture was unchanged from prior. However, labwork revealed dramatically elevated transaminases. Oral prednisone was converted to IV solumedrol. Shortly after patient's CT angiography was completed, patient's breathing became labored, and patient lost consciousness. A rapid response was called. CT angiography came back and showed severely-worsened vasculitis, which now involved the hepatic and renal arteries, in addition to active extravasation of blood in the spleen. Heparin drip was discontinued. Patient was transferred to the ICU due to her rapidly worsening clinical picture. In the ICU, patient was intubated and was started on pressors. Vascular surgery was emergently consulted, and felt that patient required immediate transfer to [place] for a higher level of care. Vascular surgery discussed patient's case with [facility], and air transfer was arranged. One unit pRBC was transfused prior to transfer, and a second unit was being given en-route. (2) Vasculitis: (3) Thrombocytopenia: (4) Headache: (5) Hypercholesterolemia: (6) Thrombophlebitis of leg, left: (7) Splenic infarct: (8) Patent foramen ovale: Discharge Plan Discharge Items Reason For Visit: ABDOMINAL PAIN,POTENTIAL INTESTINAL VASCULITIS Condition on Discharge: Good Follow-up/Referrals: Victorino Del Valle MD [Primary Care Provider] - Medications and DC Order Prescriptions: No Action vitamin B complex tablet 1 tab PO DAILY Qty: 30 RF: 0 cholecalciferol (vitamin D3) 5,000 unit capsule 5,000 units PO DAILY Qty: 30 RF: 0 biotin 10 mg tablet 10 mg PO DAILY RF: 0 simvastatin 20 mg tablet 20 mg PO QPM Qty: 90 RF: 3 ascorbate calcium (vitamin C) 500 mg tablet 500 mg PO DAILY PRN (Reason: takes when feeling ill) RF: 0 aspirin 81 mg tablet,delayed release (DR/EC) 81 mg PO Q OTHER DAY Qty: 30 RF: 2 lutein 10 mg Tablet 10 mg PO DAILY RF: 0 Admission Data Admit Date/Time: 03/15/21 23:13 Attending Provider: Murphy Vu Admit Provider: Tram Schultz Primary Care Provider: Victorino Del Valle Other Providers: Tram Schultz ; Hong Luu ; Ty Meza ; Farhan Epps ; Cris Gordon I. ; Zion Garcia Other Interventions: Discharge Summary Assessment (RN) Last Done: 03/17/21 13:55 Supervising Attestation I personally examined the patient and verified all velez points of history and exam, discussed case, and agree with decision making with Clifton Jett MS4 Chart reviewed this morning. Probably discussed with MS 4 and R1 also taking care of her. They noted the same concerns I did with her marked increase in LFTs and creatinine, and noted that fortunately at the bedside she actually examined the same as late yesterday. While we were discussing her situation, a rapid response was called overhead, to which we responded immediately. The patient had just returned from CT and was unresponsive, we promptly got her in bed supine, and resuscitative efforts were started. Fluid bolus administered, unable to get a blood pressure reading, but was able to palpate pulse. Her breathing was not very effective, so very quickly bag mask ventilation was started, and ICU team arrived to assist with airway managementshe was promptly intubated. During no time did she lose her pulse. During this time her abdominal exam was soft without guarding, rigidity, or other firmnesstenderness was not able to be assessed given that she was obtunded enough that she did not respond to painful stimuli. Promptly moved to ICU for ongoing critical care, and arrangements were made to transfer to [place] for more tertiary interventions. Also her steroids were switched from p.o. to IV, out of concern of whether or not she would be able to take p.o./absorb p.o. this morningprior to her loss of responsiveness. Abdominal vasculitiswith an unfortunate, and very surprising rapid progressiongoing from abdominal pain consistent with mesenteric ischemia, and a degree of splenic and hepatic involvement, to florid ischemic liver/spleen/renal infarct, and unfortunately what appears to have been ongoing hemoperitoneal loss of blood - most likely in the region of the splenic infarct. given 2 units PRBC to support hemodynamics and flown to [facility] for ongoing critical care and hopeful attempt at interventions to stop the abdominal bleeding. Disease process progressed extremely fast despite initiation of steroids and despite supportive care. updated. otherwise as above >30mins
--- NOTE | 2021-03-17 17:57 | Billing Data ---
Date of Service March 17, 2021 Coding Level of Care Code D/C Day Management >30 mins
--- NOTE | 2021-03-18 14:50 | Consultation Report ---
DATE OF CONSULTATION: 03/17/2021 Supplement to the consult note on Karen La done by Franca Estes: Franca saw the patient earlier today and the patient was diagnosed with polyarteritis nodosa and became critically ill and was transferred to [facility] before I was able to complete my part of the consult later in the day.
[2021-03-21 16:11] LABS: ANCA Screen Negative (Negative); Anti Nuclear Antibody Screen NEGATIVE (NEGATIVE); Babesia microti DNA Not Detected (Not Detected); Babesia microti IgG <1:64 titer (<1:64); Complement C3 136 mg/dL (83-193); Complement Total(CH50) >60 U/mL (31-60); Ehrlichia chaff DNA Bld Not Detected (Not Detected); Myeloperoxidase Ab <1.0 AI (<1.0); Proteinase-3 AB <1.0 AI (<1.0)
[2021-03-23 20:52] LABS: % Cryocrit DNR; Cryoglobulin, QL Negative (Negative)
--- NOTE | 2021-03-29 07:14 | Rheumatology Consultation ---
Rheumatology Consultation DOS March 15, 2021 History of Present Illness Reason for Consultation: Concern for MAN Attending Physician: Murphy Vu DO History of Present Illness Patient was transferred before I was able to formally see her. However, her case had been discussed with Dr. Vu on 03/14/21 Allergies Allergy/AdvReac Type Severity Reaction Status Date / Time meperidine AdvReac Intermediate N/V AND Verified 03/15/21 19:45 AMNESIA midazolam AdvReac Intermediate AMNESIA Verified 03/15/21 19:45 procaine AdvReac Intermediate HEART Verified 03/15/21 19:45 PALPITATIONS Home Medications Medication Instructions Recorded Confirmed Type cholecalciferol (vitamin D3) 125 5,000 units PO DAILY #30 cap 10/05/19 03/15/21 Rx mcg (5,000 unit) capsule vitamin B complex 1 tab PO DAILY #30 tab 10/05/19 03/15/21 Rx biotin 10 mg tablet 10 mg PO DAILY 12/31/19 03/15/21 History simvastatin 20 mg tablet 20 mg PO QPM #90 tab 04/14/20 03/15/21 Rx ascorbate calcium (vitamin C) 500 500 mg PO DAILY PRN tab 05/10/20 03/15/21 History mg tablet aspirin 81 mg tablet,delayed 81 mg PO Q OTHER DAY #30 tab 05/10/20 03/15/21 Rx release lutein 10 mg PO DAILY 03/15/21 03/15/21 History Patient History Medical History Encounter for counseling for travel Encounter for gynecological examination (general) (routine) without abnormal findings Encounter for immunization Encounter for screening for other suspected endocrine disorder Lateral epicondylitis, unspecified elbow Migraine without aura, not intractable, without status migrainosus Need for immunization using typhoid-paratyphoid (TAB) vaccine alone Need for influenza vaccination Need for pneumococcal vaccination Need for prophylactic measure Rash and other nonspecific skin eruption Surgical History S/P colonoscopy 2006, q 5yr S/P thyroid surgery R sided d/t cyst, age 14 S/P tubal ligation Family History Father Colorectal cancer Mother Coronary heart disease Brother Aortic aneurysm Denies family history of Ovarian cancer Prostate cancer Myocardial infarction Breast cancer Social History Smoking Status: Never smoker Second Hand Exposure: No; Hx Alcohol Use: Yes Alcohol type: wine Alcohol Intake Frequency Comment: 8 times a year Hx Substance Use: No Preferred Language: Belarusian Communication Ability: Effective Visual Impairment: No Limitations 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
== END 2021-03-17 13:55 | disposition short-term general hospital (02) | DRG 545 ==
LOC: ED 14:03 → 2N 23:13 → SUATTDRO 23:13 → 2N 23:50 → 1E 03-17 10:14